=== PATIENT | female | born 1960 ===

== ENCOUNTER → 2020-08-17 | Outpatient (CLI) | payer OTHER ==
[~2020-08-17] MED LIST: AMOCLA875 PO; CEFD300 PO; CEFU250T47 PO; LEVSOD112 PO; OMEP20ER PO; ONDA4ODT MM; Prinivil10 MG PO
== END | disposition home or self-care (01) ==
LOC: LAB EV 16:04 → LAB SHORT 16:04
DX: N39.0 Urinary tract infection, site not specified (principal)
CPT/HCPCS: 87077; 87086; 87186

== ENCOUNTER → 2020-08-20 | Outpatient (CLI) | payer OTHER ==
[2020-08-20 13:59] LABS: BASOPHILS ABSOLUTE AUTO 0.11 K/mm3 (0.00-0.23); BASOPHILS PERCENT AUTO 1 % (0-2); EOSINOPHILS ABSOLUTE AUTO 0.11 K/mm3 (0.00-0.68); EOSINOPHILS PERCENT AUTO 1 % (0-6); Hematocrit 32.5 % (33.0-51.0); IMMATURE GRAN PERCENT AUTO 1 % (0-1); LYMPHOCYTES ABSOLUTE AUTO 2.76 K/mm3 (0.84-5.20); LYMPHOCYTES PERCENT AUTO 16 % (21-46); MONOCYTES ABSOLUTE AUTO 1.14 K/mm3 (0.16-1.47); MONOCYTES PERCENT AUTO 7 % (4-13); Mean Corpuscular HGB 35.4 pg (26.0-34.0); Mean Corpuscular HGB Conc 33.8 g/dL (31.5-36.5); Mean Corpuscular Volume 105 fL (80-100); Mean Platelet Volume 10.2 fL (9.1-12.4); NEUTROPHILS ABSOLUTE AUTO 12.89 K/mm3 (1.96-9.15); NEUTROPHILS PERCENT AUTO 75 % (41-73); NRBC ABSOLUTE 0.02 K/mm3 (0.00-0.02); NRBC Auto 0.1 /100 WBC (0.0-0.2); Platelet Count 471 K/mm3 (150-400); RDW Coefficient Variation 16.3 % (11.7-14.2); RDW Standard Deviation 60.6 fL (35.1-46.3); Red Blood Cell Count 3.11 M/mm3 (3.80-5.20); White Blood Cell Count 17.11 K/mm3 (4.00-11.30)
[2020-08-20 14:08] LABS: Albumin, Blood 2.3 g/dL (3.4-5.0); Albumin/Globulin Ratio 0.4 (0.8-1.8); Bilirubin, Total 2.4 mg/dL (0.1-1.0); Bun/Creatinine Ratio 23.8 (12.0-20.0); Calcium, Blood 9.7 mg/dL (8.5-10.1); Creatinine, Blood 1.68 mg/dL (0.40-1.00); Globulin, Blood 5.7 g/dL (2.2-4.0); Potassium, Blood 4.1 mmol/L (3.5-5.5)
== END | disposition home or self-care (01) ==
LOC: LAB SHORT 13:53 → LAB EV 13:53
PROVIDERS: Chiropractor
DX: K92.0 Hematemesis (principal)
CPT/HCPCS: 80053; 85025

== ENCOUNTER 2020-10-24 16:13 | Inpatient (IN) | payer OTHER ==
[~2020-10-24] VITALS: Ht 152.4 cm; Wt 71.6 kg
[2020-10-24 16:41] LABS: BASOPHILS ABSOLUTE AUTO 0.11 K/mm3 (0.00-0.23); BASOPHILS PERCENT AUTO 1 % (0-2); EOSINOPHILS ABSOLUTE AUTO 0.14 K/mm3 (0.00-0.68); EOSINOPHILS PERCENT AUTO 1 % (0-6); Hematocrit 29.8 % (33.0-51.0); Hemoglobin 9.4 g/dL (11.5-16.0); IMMATURE GRAN PERCENT AUTO 1 % (0-1); LYMPHOCYTES ABSOLUTE AUTO 2.31 K/mm3 (0.84-5.20); LYMPHOCYTES PERCENT AUTO 16 % (21-46); MONOCYTES ABSOLUTE AUTO 1.03 K/mm3 (0.16-1.47); MONOCYTES PERCENT AUTO 7 % (4-13); Mean Corpuscular HGB 33.1 pg (26.0-34.0); Mean Corpuscular HGB Conc 31.5 g/dL (31.5-36.5); Mean Corpuscular Volume 105 fL (80-100); Mean Platelet Volume 9.9 fL (9.1-12.4); NEUTROPHILS ABSOLUTE AUTO 10.62 K/mm3 (1.96-9.15); NEUTROPHILS PERCENT AUTO 74 % (41-73); Platelet Count 443 K/mm3 (150-400); RDW Coefficient Variation 15.4 % (11.7-14.2); RDW Standard Deviation 59.4 fL (35.1-46.3); Red Blood Cell Count 2.84 M/mm3 (3.80-5.20); White Blood Cell Count 14.31 K/mm3 (4.00-11.30)
[2020-10-24 16:48] LABS: Albumin, Blood 2.1 g/dL (3.4-5.0); Albumin/Globulin Ratio 0.4 (0.8-1.8); Bilirubin, Total 1.6 mg/dL (0.1-1.0); Bun/Creatinine Ratio 18.8 (12.0-20.0); Calcium, Blood 9.6 mg/dL (8.5-10.1); Creatinine, Blood 1.17 mg/dL (0.40-1.00); Globulin, Blood 5.6 g/dL (2.2-4.0); Total Protein, Blood 7.7 g/dL (6.4-8.2)
--- NOTE | 2020-10-25 02:28 | NUR ---
ADMIT PT TO ROOM FROM ER. AXO. WALKS INTO BED W/OUT ASSIST. PT IN SINUS TACH, OTHER VSS. 1 EPISODE OF EMESIS, EMESIS GREEN / WHITE. REGLAN ADMINISTERED. PROTONIX GTT INFUSING WITH NS. ADMISSION COMPLETED. PT HAS BEEN RESTING QUIETLY POST ADMISSION. CIWAS <8.
[2020-10-25 03:36] LABS: BASOPHILS ABSOLUTE AUTO 0.09 K/mm3 (0.00-0.23); BASOPHILS PERCENT AUTO 1 % (0-2); EOSINOPHILS ABSOLUTE AUTO 0.24 K/mm3 (0.00-0.68); EOSINOPHILS PERCENT AUTO 1 % (0-6); Hematocrit 26.2 % (33.0-51.0); Hemoglobin 8.3 g/dL (11.5-16.0); IMMATURE GRAN PERCENT AUTO 1 % (0-1); LYMPHOCYTES PERCENT AUTO 16 % (21-46); MONOCYTES PERCENT AUTO 9 % (4-13); Mean Corpuscular HGB 32.5 pg (26.0-34.0); Mean Corpuscular HGB Conc 31.7 g/dL (31.5-36.5); Mean Corpuscular Volume 103 fL (80-100); Mean Platelet Volume 9.9 fL (9.1-12.4); NEUTROPHILS ABSOLUTE AUTO 13.54 K/mm3 (1.96-9.15); NEUTROPHILS PERCENT AUTO 73 % (41-73); Platelet Count 356 K/mm3 (150-400); RDW Coefficient Variation 15.7 % (11.7-14.2); RDW Standard Deviation 58.6 fL (35.1-46.3); Red Blood Cell Count 2.55 M/mm3 (3.80-5.20); White Blood Cell Count 18.57 K/mm3 (4.00-11.30)
[2020-10-25 03:53] LABS: Albumin, Blood 1.9 g/dL (3.4-5.0); Albumin/Globulin Ratio 0.4 (0.8-1.8); Bilirubin, Total 1.5 mg/dL (0.1-1.0); Bun/Creatinine Ratio 23.2 (12.0-20.0); Calcium, Blood 8.4 mg/dL (8.5-10.1); Creatinine, Blood 1.42 mg/dL (0.40-1.00); Magnesium, Blood 1.5 mg/dL (1.6-2.4); Potassium, Blood 3.5 mmol/L (3.5-5.5); Total Protein, Blood 6.9 g/dL (6.4-8.2)
[2020-10-25 03:55] LABS: Source, Urine Clean Catch
[2020-10-25 03:57] LABS: Blood, Urine 1+ (Neg); Glucose Qualitative, Urine Neg (Neg); Ketones, Urine 1+ (Neg); Leukocyte Esterase, Urine 2+ (Neg); Nitrite, Urine Neg (Neg); Protein, Urine 1+ (Neg); Specific Gravity, Urine 1.015 (1.003-1.022); Urobilinogen, Urine 1+ (Normal)
[2020-10-25 04:04] LABS: Appearance, Urine Hazy (Clear); Bilirubin, Urine 1+ (Neg); Color, Urine Yellow (P-Yellow)
[2020-10-25 04:05] LABS: Amorphous Light (0-Heavy); Bacteria Mod /hpf; Mucus Light (0-Heavy); Red Blood Cells, Urine Rare /hpf (0-2); Squamous Epithelial Cells Few /hpf (Few); White Blood Cells, Urine 50-100 /hpf (0-5); Yeast/Fungi Urine Few /hpf
--- NOTE | 2020-10-25 04:51 | NUR ---
END OF SHIFT SUMMARY NO ACUTE CHANGES THIS SHIFT. VSS. REMAINS AXO. ON RA. IN SR, VSS. HAS HAD ONE EPISODE OF EMESIS SO FAR, NO BLOOD NOTED. HAD BM, NO BLOOD NOTED. HAS DENIED NAUSEA POST REGLAN CADMINISTRATION WITH ADMISSION. FLUIDS AND PROTONIX GTT INFUSING. PT TO BSC X2 WITH SBA. OTHERWISE, PT RESTING T/O SHIFT. USES CALL LIGHT APPROPRIATELY. WILL CONTINUE TO MONITOR UNTIL SHIFT CHANGE.
--- NOTE | 2020-10-25 06:51 | NUR ---
GI PT HAVING INCREASING DARK BLACK BM'S WITHIN THE LAST 2 HOURS. PT ALSO FOUND TO HAVE HAD AN EPISODE OF DARK RED EMESIS. PT MEDICATED PER EMAR.
--- NOTE | 2020-10-25 08:00 | NUR ---
CALLED DR. MCGILL AND DR. STRANGE TO UPDATE ON PATIENT STATUS. INFORMED THAT LIFE SKILLS TEACHER RN REPORTED PATIENT HAD SMALL, BLACK, HARD BM AROUND 0330 THIS AM, THEN 5-6 BLACK, SOFT/ PASTY BMS INCREASING IN SIZE EACH TIME FROM SMALL TO MEDIUM, THEN 200 TO 300 MLS OF DARK RED EMESIS. THIS SHIFT, PATIENT HAS HAD 150 MLS OF DARK RED LIQUID BM AND IS HYPOTENSIVE AT 80/45 WITH MAP OF 61. HR IN THE 90S. DR. MCGILL STATES WATER ONLY FOR NOW AND THEN NPO AT 1300 AND PLAN TO SCOPE AROUND 4PM. H AND H AT 0900.
--- NOTE | 2020-10-25 08:05 | NUR ---
PATIENT ALERT AND ORIENTED X 4, AFEBRILE. PATIENT WITHDRAWN WITH FLAT AFFECT. CIWA SCORE OF 3 FOR TREMORS AND NAUSA. PATIENT LIGHTHEADED AND DIZZY WHEN DANGLES FROM SIDE OF BED OR STANDS UP. PATIENT 1 PA. PATIENT STATES SHE DOES HAVE SOME STOMACH PAIN. PATIENT SATTING 90% AND GREATER ON RA. EXPIRATORY RHONCHI NOTED IN RLL. PATIENT IN SR WITH OCCASIONAL PACS NOTED. HR IN THE 90S. SBP 80S TO 90S. SCDS PLACED. ABDOMEN MILDLY DISTENDED, SOFT, TENDER, WITH HYPERACTIVE BS NOTED. PATIENT STATES SHE DOES FEEL SLIGHTLY NAUSEOUS. CT TECH REPORTED PATIENT HAD SEVERAL BLACK BMS INCREASING IN SIZE THROUGHOUT THE NIGHT AND BEGINNING HARD AND ENDING UP PASTY/SOFT BY END OF SHIFT. CT TECH ALSO REPORTED THAT PATIENT HAD 200 TO 300 MLS BLOODY EMESIS THIS AM. PATIENT HAD DARK RED, LIQUID BM THIS AM AFTER COMING ON SHIFT. BOTH DR. MCGILL AND DR. STRANGE AWARE AND ORDERS OBTAINED. PATIENT TO HAVE SCOPE THIS AFTERNOON. PATIENT TO HAVE WATER ONLY AND THEN NPO AT 1300. PATIENT DENIES UTI SYMPTOMS. SCRATCHES NOTED TO L FA. PROTONIX INFUSING AT 10 MLS/ HOUR, NS AT 75 MLS/ HOUR. BED LOW, CALL LIGHT IN REACH. WILL CONTINUE TO MONITOR PATIENT FREQUENTLY THROUGHOUT SHIFT.
[2020-10-25 10:00] LABS: Hematocrit 23.6 % (33.0-51.0); Hemoglobin 7.6 g/dL (11.5-16.0)
--- NOTE | 2020-10-25 10:10 | NUR ---
DR. MCGILL CALLED WITH H AND H RESULTS. ORDER FOR ANOTHER H AND H LEVEL RECEIVED.
--- NOTE | 2020-10-25 12:50 | NUR ---
PATIENT RESTING QUIETLY IN BED. HR 80S TO 90S. SBP 80S TO LOW 100S. BLOOD SUGAR OF 158; NO COVERAGE NEEDED. PATIENT CONTINUES TO HAVE LIQUID TO THICK, DARK RED/MAROON STOOLS. PATIENT HAS VOIDED VERY MINIMAL AMOUNT. NO OTHER ACUTE CHANGES TO NOTE ON AT THIS TIME.
--- NOTE | 2020-10-25 13:45 | NUR ---
DR. STRANGE CALLED AND INFORMED THAT PATIENT HAS ONLY VOIDED ONCE THIS SHIFT. INFORMED THAT BLADDER SCAN PERFORMED AND SHOWED 0 TO 30 MLS OF URINE IN BLADDER. INFORMED DOCTOR THAT PATIENT'S SBP HAS RANGED FROM 80S TO LOW 100S. ORDER OBTAINED FOR NS BOLUS AND TO REPEAT BLADDER SCAN AFTER BOLUS.
[2020-10-25 15:15] LABS: Hematocrit 22.1 % (33.0-51.0)
--- NOTE | 2020-10-25 15:20 | NUR ---
DR. MCGILL INFORMED OF HEMOGLOBIN OF 7.0. INFORMED THAT PATIENT IS RECEIVING NS BOLUS. NO ORDERS RECEIVED.
--- NOTE | 2020-10-25 15:50 | NUR ---
HR 80S TO 90S. SBP LOW 100S TO 120S. PATIENT CONTINUES TO HAVE MINIMAL URINE OUTPUT. NO OTHER ACUTE CHANGES TO NOTE ON AT THIS TIME.
--- NOTE | 2020-10-25 16:17 | NUR ---
FROM ICU TO SDS VSS ADMISSION TO UNIT STARTED. History, Chart, Medications and Allergies reviewed before start of procedure.Lungs clear T/O to Auscultation.
[2020-10-25 16:47] LABS: BASOPHILS ABSOLUTE AUTO 0.07 K/mm3 (0.00-0.23); BASOPHILS PERCENT AUTO 0 % (0-2); EOSINOPHILS ABSOLUTE AUTO 0.21 K/mm3 (0.00-0.68); EOSINOPHILS PERCENT AUTO 1 % (0-6); Hematocrit 22.2 % (33.0-51.0); IMMATURE GRAN PERCENT AUTO 1 % (0-1); LYMPHOCYTES ABSOLUTE AUTO 2.89 K/mm3 (0.84-5.20); LYMPHOCYTES PERCENT AUTO 17 % (21-46); MONOCYTES ABSOLUTE AUTO 1.56 K/mm3 (0.16-1.47); MONOCYTES PERCENT AUTO 9 % (4-13); Mean Corpuscular HGB 33.8 pg (26.0-34.0); Mean Corpuscular HGB Conc 31.5 g/dL (31.5-36.5); Mean Corpuscular Volume 107 fL (80-100); Mean Platelet Volume 10.5 fL (9.1-12.4); NEUTROPHILS ABSOLUTE AUTO 11.93 K/mm3 (1.96-9.15); NEUTROPHILS PERCENT AUTO 71 % (41-73); Platelet Count 298 K/mm3 (150-400); RDW Coefficient Variation 16.3 % (11.7-14.2); RDW Standard Deviation 64.1 fL (35.1-46.3); Red Blood Cell Count 2.07 M/mm3 (3.80-5.20); White Blood Cell Count 16.76 K/mm3 (4.00-11.30)
--- NOTE | 2020-10-25 18:31 | NUR ---
SHIFT SUMMARY PATIENT REMAINED ALERT AND ORIENTED X 4, AFEBRILE. CIWA SCORE REMAINED 3 FOR TREMORS AND INTERMITTENT NAUSEA. DIZZINESS IMPROVED DURING SHIFT WITH IMPROVEMENT IN BLOOD PRESSURE. PATIENT REMAINED 1 PA TO BSC. PATIENT REMAINED SATTING 90% AND GREATER ON RA. PATIENT REMAINED IN SR WITH OCCASIONAL PACS. HR 80S TO 90S. SBP 80S TO 130S. PATIENT HAD 9 BMS THIS SHIFT. BMS DARK RED TO MAROON IN COLOR. BMS LIQUID AND THICK TO THIN IN CONSISTENCY. PATIENT HAD NO EMESIS THIS SHIFT BUT DID HAVE INTERMITTENT NAUSEA AT BEGINNING OF SHIFT. PATIENT CONTINUES TO DENY UTI SYMPTOMS. PATIENT HAD MINIMAL URINE OUTPUT. FIRST BLADDER SCAN SHOWED LESS THAN 30 CC URINE IN BLADDER. 1 L NS BOLUS GIVEN PER DR. STRANGE. BLADDER SCAN PERFORMED AFTER PATIENT BACK FROM SCOPE AND SHOWED 43 CC URINE IN BLADDER. DR. STRANGE NOTIFIED AGAIN AND ORDER RECEIVED FOR NS AT 100 MLS/ HOUR. NO CHANGE TO SKIN. PATIENT RECEIVED ROCEPHIN AND BANANA BAG THIS SHIFT. NO INTERVENTION PERFORMED DURING EGD. PATIENT NOW ON FULL LIQUID DIET AND PROTONIX BID. BLOOD SUGARS 92 TO 180; NO COVERAGE INDICATED THIS SHIFT. PATIENT LYING IN BED WATCHING TV AT THIS TIME. NO SIGNS OF PAIN OR DISCOMFORT NOTED. BED LOW, CALL LIGHT IN REACH. REPORT WILL BE GIVEN TO ASSUMING FOUNDRY MANAGER NURSE SHORTLY.
--- NOTE | 2020-10-25 19:26 | NUR ---
10/25/201925 Timmy Veras PATIENT DETERMINED TO BE ASA APPROPRIATE FOR PROPOFOL SEDATION PRIOR TO START OF PROCEDURE BY . 3-LEAD EKG REVIEWED WITH PHYSICIAN PRIOR TO START OF PROCEDURE.History, Chart, Medications and Allergies reviewed before start of procedure.MONITOR INTACT WITH CONTINUOUS PULSE OXIMETRY AND INTERMITTENT BP.O2 VIA N/C INTACT THROUGHOUT SEDATION/PROCEDURE.
[2020-10-25 21:09] LABS: BASOPHILS ABSOLUTE AUTO 0.08 K/mm3 (0.00-0.23); BASOPHILS PERCENT AUTO 1 % (0-2); EOSINOPHILS ABSOLUTE AUTO 0.46 K/mm3 (0.00-0.68); EOSINOPHILS PERCENT AUTO 3 % (0-6); Hematocrit 21.3 % (33.0-51.0); Hemoglobin 6.7 g/dL (11.5-16.0); IMMATURE GRAN ABSOLUTE AUTO 0.08 K/mm3 (0.00-0.10); IMMATURE GRAN PERCENT AUTO 1 % (0-1); LYMPHOCYTES ABSOLUTE AUTO 3.59 K/mm3 (0.84-5.20); LYMPHOCYTES PERCENT AUTO 21 % (21-46); MONOCYTES PERCENT AUTO 8 % (4-13); Mean Corpuscular HGB 33.3 pg (26.0-34.0); Mean Corpuscular HGB Conc 31.5 g/dL (31.5-36.5); Mean Corpuscular Volume 106 fL (80-100); Mean Platelet Volume 10.4 fL (9.1-12.4); NEUTROPHILS PERCENT AUTO 68 % (41-73); Platelet Count 306 K/mm3 (150-400); RDW Coefficient Variation 16.2 % (11.7-14.2); RDW Standard Deviation 62.2 fL (35.1-46.3); Red Blood Cell Count 2.01 M/mm3 (3.80-5.20); White Blood Cell Count 17.01 K/mm3 (4.00-11.30)
--- NOTE | 2020-10-26 | NUR ---
DR MCGILL CALLED AT 2100 W/ H+H RESULTS. 1 UNIT PRBC STARTED AT 2356. LUNGS CLEAR. MD AWARE NS HAD BEEN AT 100ML AN HOUR AND DR MCGILL WANTS NS ONLY TKO. TO KEEP PT ON THE DRY SIDE. AWARE VS / BP WNL. PT TOOK A FEW POP SICLES AND ONLY A FEW SIPS OF CLEAR SODA. DENIES NAUSEA/ OR GI DISTRESS.
--- NOTE | 2020-10-26 00:11 | NUR ---
LUNGS CLEAR AT 15 MIN POST BLOOD TX START, NO ADVERSE ISSUES
--- NOTE | 2020-10-26 02:20 | NUR ---
LUNGS REMAIN CLEAR . RBC TX IN PROGRESS
[2020-10-26 04:48] LABS: BASOPHILS ABSOLUTE AUTO 0.12 K/mm3 (0.00-0.23); BASOPHILS PERCENT AUTO 1 % (0-2); EOSINOPHILS ABSOLUTE AUTO 0.65 K/mm3 (0.00-0.68); EOSINOPHILS PERCENT AUTO 4 % (0-6); Hematocrit 25.3 % (33.0-51.0); Hemoglobin 8.4 g/dL (11.5-16.0); IMMATURE GRAN ABSOLUTE AUTO 0.08 K/mm3 (0.00-0.10); IMMATURE GRAN PERCENT AUTO 1 % (0-1); LYMPHOCYTES PERCENT AUTO 17 % (21-46); MONOCYTES ABSOLUTE AUTO 1.19 K/mm3 (0.16-1.47); MONOCYTES PERCENT AUTO 7 % (4-13); Mean Corpuscular HGB 33.1 pg (26.0-34.0); Mean Corpuscular HGB Conc 33.2 g/dL (31.5-36.5); Mean Platelet Volume 10.3 fL (9.1-12.4); NEUTROPHILS ABSOLUTE AUTO 11.29 K/mm3 (1.96-9.15); NEUTROPHILS PERCENT AUTO 70 % (41-73); Platelet Count 292 K/mm3 (150-400); RDW Coefficient Variation 17.1 % (11.7-14.2); RDW Standard Deviation 60.2 fL (35.1-46.3); Red Blood Cell Count 2.54 M/mm3 (3.80-5.20); White Blood Cell Count 16.13 K/mm3 (4.00-11.30)
[2020-10-26 04:49] LABS: Mean Corpuscular Volume 100 fL (80-100)
[2020-10-26 05:08] LABS: Albumin, Blood 1.9 g/dL (3.4-5.0); Albumin/Globulin Ratio 0.4 (0.8-1.8); Bilirubin, Total 2.2 mg/dL (0.1-1.0); Calcium, Blood 7.8 mg/dL (8.5-10.1); Creatinine, Blood 1.5 mg/dL (0.40-1.00); Globulin, Blood 4.7 g/dL (2.2-4.0); Magnesium, Blood 1.9 mg/dL (1.6-2.4); Potassium, Blood 3.9 mmol/L (3.5-5.5); Total Protein, Blood 6.6 g/dL (6.4-8.2)
--- NOTE | 2020-10-26 06:14 | NUR ---
SHIFT SUMMARY. TOLERATES SIPS OF SODA AND POP SICLE. FULL LIQ DIET STARTS THIS AM AT BREAKFAST/ NOT OFFERED LAST NOC. NO PAIN OR GI DISTURBANCE.NO NAUSEA. ONLY ONE SCANTY BROWN LIQ STOOL AT 1999. NO EVIDENCE OF DT'S . CIWA 0. LUNGS REMAIN CLEAR.SR ALL SHIFT.
--- NOTE | 2020-10-26 08:05 | NUR ---
INITIAL ASSESSMENT PATIENT ALERT AND ORIENTED X 4, AFEBRILE. PATIENT CALM, COOPERATIVE AND PLEASANT. CIWA SCORE OF 0. PATIENT WEAK, SBA TO BSC. NO COMPLAINTS OF PAIN. PATIENT SATTING 90% AND GREATER ON RA. LUNGS CLEAR THROUGHOUT. PATIENT IN SR, HR 60S TO 90S. SBP 140S TO 150S. PATIENT HAD SMALL, LIQUID, BROWN BM THIS AM. PATIENT VOIDING RAY COLORED URINE. PATIENT DENIES UTI SYMPTOMS. NS TKO. BED LOW, CALL LIGHT IN REACH. WILL CONTINUE TO MONITOR PATIENT FREQUENTLY THROUGHOUT SHIFT.
--- NOTE | 2020-10-26 12:00 | NUR ---
PATIENT AFEBRILE. NO COMPLAINTS OF PAIN OR DISCOMFORT. HR IN THE 60S. SBP 120S TO 130S. BLOOD SUGAR OF 115; NO COVERAGE INDICATED. NO ACTIVE BLEEDING NOTED. NO OTHER ACUTE CHANGES TO NOTE ON AT THIS TIME.
[2020-10-26] MEDS ORDERED: ACET325 PO (13:17)
[2020-10-26] MEDS ORDERED: KEFLEX500 MG PO (13:19)
[2020-10-26] MEDS ORDERED: AZO CRANBERRY PO (13:22)
[2020-10-26] MEDS ORDERED: PANT40 PO (13:23)
[2020-10-26] MEDS ORDERED: ONDA4ODT MM (13:23)
[2020-10-26] MEDS ORDERED: Inderal 20 mg T20 MG PO (13:25)
--- NOTE | 2020-10-26 14:20 | NUR ---
SHIFT SUMMARY PATIENT REMAINED ALERT AND ORIENTED X 4, AFEBRILE. PATIENT HAD NO COMPLAINTS OF PAIN THIS SHIFT. PATIENT SLIGHTLY WEAK BUT IS AMBULATING WELL WITH SBA FOR CORDS AND LINES. CIWA SCORE REMAINED ZERO. PATIENT REMAINED SATTING 90% AND GREATER ON RA. PATIENT REMAINS IN SR, HR 60S TO 90S. SBP 120S TO 150S. PATIENT HAD 2 SMALL, LIQUID, BROWN BMS. PATIENT HAD GOOD URINE OUTPUT. PATIENT CONTINUES TO DENY UTI SYMPTOMS. NO CHANGE IN SKIN. PATIENT RECEIVED 25MM SODIUM PHOSPHORUS FOR PHOS OF 2 THIS AM. PATIENT RECEIVED BANANA BAG. BLOOD SUGARS RANGED FROM 115 TO 162; NO COVERAGE INDICATED. DR. MCGILL AND DR. STRANGE BOTH IN TO SEE PATIENT. DISCHARGE ORDERS PLACED. PATIENT GIVEN DISCHARGE INFORMATION AND STATED THAT ALL INSTRUCTIONS AND EDUCATION WERE UNDERSTOOD. PATIENT TAKEN TO PATIENT ENTRANCE WHERE NEIGHBOR MEETING HER TO TAKE HER HOME. PATIENT TOOK ALL BELONGINGS WITH HER. DISCHARGE COMPLETE.
== END 2020-10-26 14:50 | disposition home or self-care (01) | DRG 369 ==
LOC: ER 16:13 → ERHOLD 19:21 → ICUE 19:21
PROVIDERS: Emergency Medicine; Internal Medicine Gastroenterology; ADMIT Family Medicine
PROC: 0DJ08ZZ Inspection of Upper Intestinal Tract, Via Natural or Artificial Opening Endoscopic (ICD-10-PCS; principal; 2020-10-25 17:00)
PROC: 30233N1 Transfusion of Nonautologous Red Blood Cells into Peripheral Vein, Percutaneous Approach (ICD-10-PCS; 2020-10-26)
DX: K22.6 Gastro-esophageal laceration-hemorrhage syndrome (principal); F10.188 Alcohol abuse with other alcohol-induced disorder; I10 Essential (primary) hypertension; E03.9 Hypothyroidism, unspecified; Z87.891 Personal history of nicotine dependence; R73.9 Hyperglycemia, unspecified; D72.829 Elevated white blood cell count, unspecified; L80 Vitiligo; K70.30 Alcoholic cirrhosis of liver without ascites
CPT/HCPCS: 36415; 36430; 71045; 80053; 81001; 82272; 82947; 83036; 83690; 83735; 84100; 85014; 85018; 85025; 86850; 86900; 86901; 86923; 87086; 96365; 96375; 99285-25; A9270-GY; C9113; J0696; J2405; J2704; J2765; J3411; J3475; J7030; J7042; J7060; P9016

== ENCOUNTER 2020-12-17 02:33 | Inpatient (IN) | payer OTHER ==
[~2020-12-17] VITALS: Ht 152.4 cm; Wt 67.2 kg
[~2020-12-17 02:33] MED LIST changes: +ACET325 PO; +AZO CRANBERRY PO; +Inderal 20 mg T20 MG PO; +KEFLEX500 MG PO; +PANT40 PO
[2020-12-17 02:45] LABS: Calcium, Ionized (POC) 1.08 mmol/L (1.10-1.46); Chloride (POC) 104 mmol/L (98-108); Creatinine (POC) 1.7 mg/dL (0.6-1.0); Glucose (ISTAT POC) 137 mg/dL (70-99); Hemoglobin (POC) 8.2 g/dL (12.0-16.0); Potassium (POC) 4.5 mmol/L (3.5-5.5); Sodium (POC) 139 mmol/L (135-148); Total CO2 (POC) 28 mmol/L (21-32)
[2020-12-17 02:49] LABS: BASOPHILS ABSOLUTE AUTO 0.11 K/mm3 (0.00-0.23); BASOPHILS PERCENT AUTO 1 % (0-2); EOSINOPHILS ABSOLUTE AUTO 0.37 K/mm3 (0.00-0.68); EOSINOPHILS PERCENT AUTO 3 % (0-6); Hematocrit 25.8 % (33.0-51.0); Hemoglobin 7.8 g/dL (11.5-16.0); IMMATURE GRAN ABSOLUTE AUTO 0.06 K/mm3 (0.00-0.10); IMMATURE GRAN PERCENT AUTO 1 % (0-1); LYMPHOCYTES ABSOLUTE AUTO 1.74 K/mm3 (0.84-5.20); LYMPHOCYTES PERCENT AUTO 15 % (21-46); MONOCYTES ABSOLUTE AUTO 0.87 K/mm3 (0.16-1.47); MONOCYTES PERCENT AUTO 8 % (4-13); Mean Corpuscular HGB 28.2 pg (26.0-34.0); Mean Corpuscular HGB Conc 30.2 g/dL (31.5-36.5); Mean Corpuscular Volume 93 fL (80-100); Mean Platelet Volume 10.6 fL (9.1-12.4); NEUTROPHILS ABSOLUTE AUTO 8.36 K/mm3 (1.96-9.15); NEUTROPHILS PERCENT AUTO 73 % (41-73); Platelet Count 367 K/mm3 (150-400); RDW Coefficient Variation 17.4 % (11.7-14.2); RDW Standard Deviation 58.7 fL (35.1-46.3); Red Blood Cell Count 2.77 M/mm3 (3.80-5.20); White Blood Cell Count 11.51 K/mm3 (4.00-11.30)
[2020-12-17 03:05] LABS: Alanine Aminotransfer (ALT/SGP 56 U/L (12-78); Albumin, Blood 2.1 g/dL (3.4-5.0); Albumin/Globulin Ratio 0.4 (0.8-1.8); Alk Phos 209 U/L (50-136); Anion Gap 6 mmol/L (6-16); Aspartate Aminotrans (AST/SGOT 156 U/L (12-37); Bilirubin, Total 1.4 mg/dL (0.1-1.0); Blood Urea Nitrogen 30 mg/dL (8-24); Bun/Creatinine Ratio 20.7 (12.0-20.0); CO2, Blood 27 mmol/L (21-32); Calcium, Blood 8.1 mg/dL (8.5-10.1); Chloride, Blood 109 mmol/L (98-108); Creatinine, Blood 1.45 mg/dL (0.40-1.00); Ethanol (Alcohol), Blood, Med <3 mg/dL; Globulin, Blood 4.8 g/dL (2.2-4.0); Glomerular Filtration Rate 39 (60-); Glucose, Blood 141 mg/dL (70-99); International Normalized Ratio 1.23; Potassium, Blood 4.6 mmol/L (3.5-5.5); Sodium, Blood 142 mmol/L (136-145); Total Protein, Blood 6.9 g/dL (6.4-8.2)
--- NOTE | 2020-12-17 06:27 | NUR ---
ASSUMED PT: PT ARRIVED FROM ER VIA GURNEY WITH RN AT BEDSIDE. PT DENIES ANY PAIN. LS CLEAR T/O WITH BIOX 100% ON RA. HEART SOUNDS S1 AND S2 AUSCULTATED WITH MONITOR SHOWING NSR WITH HR75. SKIN PINK, WARM AND DRY. PPP BILAT WITH NO EDEMA. 20G IV LAC WITH SANDOSTATIN AT 25MCG/HR. 16G IV R AC WITH PROTONIX AT 10ML/HR. ABD R/S WITH HYPO BT'S X4. UP WITH ASSIST TO TOILET WHEN SHE GOT HERE. PT STATES HER LAST DRINK WAS ABOUT 1 WEEK AGO. DRINKS EITHER VODKA OR TEQUILA.
--- NOTE | 2020-12-17 07:30 | NUR ---
PT IS ALERT AND ORIENTED X 4. CURRENTLY, PT DENIES PAIN OR NAUSEA. NO ACTIVE GI BLEEDING AT THIS TIME. NPO. DR. MCGILL HAS BEEN CONSULTED. PROTONIX DRIP @ 8 MG AND OCTREOTIDE @ 25 MCG/HR.
--- NOTE | 2020-12-17 08:00 | NUR ---
DR. MCGILL HERE TO SEE PT. EGD LATER THIS AFTERNOON. PT MAY HAVE CLEAR LIQUIDS UNTIL 1400 TODAY. NPO @ 1400-PT VERBALIZES UNDERSTANDING AND COOPERATION WITH THIS PLAN OF CARE.
[2020-12-17 11:04] LABS: Hematocrit 23.5 % (33.0-51.0)
--- NOTE | 2020-12-17 11:30 | NUR ---
DR. TOLLIVER NOTIFIED THAT HGB 7-ORDER GIVEN TO TRANSFUSE 1 UNIT PRBC'S. PT CONTINUES TO DENY NAUSEA AND GI DISTRESS. NO ACTIVE GI BLEEDING AT THIS TIME. PT IS TOLERATING CLEAR LIQUIDS WELL.
--- NOTE | 2020-12-17 12:20 | NUR ---
PT DENIES NAUSEA. NO NOTED ACUTE GI BLEEDING. 1 UNIT PRBC'S INFUSING-SEE TAR.
--- NOTE | 2020-12-17 13:00 | NUR ---
SPOKE WITH [facility] KWON FROM DAY SURGERY. PT TO BE NPO NOW. COVID-RAPID TEST DONE. ECG TENTATIVELY SCHEDULED FOR 1514 TODAY.
[2020-12-17 14:16] LABS: Influenza A, PCR Negative (NEGATIVE); Influenza B, PCR Negative (NEGATIVE); Resp Syncytial Virus, PCR Negative (NEGATIVE); SARS-Cov-2 (COVID-19) PCR, MMC Negative (NEGATIVE)
--- NOTE | 2020-12-17 15:33 | NUR ---
12/17/20 1533 Allyson Sims History, Chart, Medications and Allergies reviewed before start of procedure.PATIENT DETERMINED TO BE ASA APPROPRIATE FOR PROPOFOL SEDATION PRIOR TO START OF PROCEDURE BY . Patient confirms NPO status and agrees with scheduled surgery.MONITOR INTACT WITH CONTINUOUS PULSE OXIMETRY AND INTERMITTENT BP.O2 VIA POM INTACT THROUGHOUT SEDATION/PROCEDURE.3-LEAD EKG REVIEWED WITH PHYSICIAN PRIOR TO START OF PROCEDURE.
--- NOTE | 2020-12-17 17:00 | NUR ---
EGD COMPLETED. PT IS AWAKE AND ALERT. PT DENIES PAIN OR NAUSEA. 2 VARICES NOTED DURING ECG WITH 2 BANDS PLACED. FULL LIQUID DIET INITIATED. PT TOLERATING DIET WELL. VS WDL. LAB PHONED TO COME DRAW POST TRANSFUSION H&H.
[2020-12-17 17:29] LABS: Hematocrit 27.5 % (33.0-51.0); Hemoglobin 8.4 g/dL (11.5-16.0)
--- NOTE | 2020-12-17 19:10 | NUR ---
ASSUMPTION OF CARE RECEIVED REPORT FROM JANNY BETHEA. ASSUMED CARE OF PATIENT. PATIENT A/O, IN BED. FINISHING DINNER TRAY. ONE RN ASSIST TO TOILET WITH STEADY GAIT. PATIENT DENIES DISCOMFORTS. OCTREOTIDE INFUSING ORDERED. VITAL STABLE. CALL LIGHT IN REACH. WILL REVIEW ORDERS AND TREAT PRESCRIBED.
[2020-12-17 23:10] LABS: Hematocrit 25.8 % (33.0-51.0); Hemoglobin 8.1 g/dL (11.5-16.0)
--- NOTE | 2020-12-18 | NUR ---
REASSESSMENT NO ACUTE CHANGES FROM PREVIOUS ASSESSMENT. OCTREOTIDE CONTINUES PER DR. MATSON. VITALS STABLE. PATIENT DENIES DISCOMFORTS. CALL LIGHT IN REACH.
--- NOTE | 2020-12-18 04:00 | NUR ---
REASSESSMENT NO ACUTE CHANGES FROM PREVIOUS ASSESSMENT. PATIENT CONTINUES TO DENY PAIN OR DISCOMFORTS. OCTREOTIDE INFUSING ORDERED. VITALS STABLE. CALL LIGHT IN REACH.
[2020-12-18 05:05] LABS: Hematocrit 27.4 % (33.0-51.0); Hemoglobin 8.6 g/dL (11.5-16.0)
--- NOTE | 2020-12-18 06:07 | NUR ---
SHIFT SUMMARY NO ACUTE EVENTS THROUGH SHIFT. LABS AND VITALS REMAINED STABLE. PATIENT DENIED DISCOMFORTS DURING NIGHT. INDEPENDENT WITH TURNS, STAND BY ASSIST TO TOILET IN ROOM WITH STEADY GAIT. OCTREOTIDE INFUSING ORDERED. CALL LIGHT IN REACH. WILL GIVE REPORT TO ONCOMING RN.
--- NOTE | 2020-12-18 08:31 | NUR ---
ASSUMED CARE OF PT, REPORT RCV'D FROM UVALDO Lundberg RN. PT ALERT AND ORIENTED, COOPERATIVE WITH CARE. PT INDEPENDENT WITH ASSISTANCE ONLY NEEDED FOR CORDS. PT DENIES ABDOMINAL PAIN AT REST OR WITH PALPATION. SANDOSTATIN INFUSING @ 25 MLS/HR. VSS. SEE FULL SHIFT ASSESSMENT.
--- NOTE | 2020-12-18 09:39 | NUR ---
PT CHANGED TO MEDICAL STATUS NO TELE PER DR. TOLLIVER. PT UPDATED.
--- NOTE | 2020-12-18 17:03 | NUR ---
SHIFT SUMMARY NO ACUTE CHANGES DURING THIS SHIFT. PT REMAINS INDEPENDENT IN ROOM. AMBULATING WITHOUT DIFFICULTY. PT EATING WELL. NO COMPLAINT OF NAUSEA, OR ABDOMINAL PAIN. PT HAD GOOD URINARY OUTPUT. NO EPISODES OF BLOODY EMESIS OR BM'S. VSS T/O SHIFT. PT REMAINS MED/NO TELE STATUS. WILL REPORT TO ONCOMING NURSE.
--- NOTE | 2020-12-18 19:24 | NUR ---
ASSESSMENT BED SIDE REPORT RECIEVED FROM GRACIE. PT AWAKE A&O. DENEIS PAIN OR DISCOMFORT. UP IN ROOM AD HAY. LUNGS CLEAR ON ROOMAIR. RESP EVEN AND NONLABORED. HEART RATE REGULAR. BP STABLE. BT+ ABD SOFT AND NONTENDER. DENIES N/V.
--- NOTE | 2020-12-18 20:52 | NUR ---
TRANSFER PT TO TRANSFER TO 327. REPORT CALLED TO SAMMI HE RN.
--- NOTE | 2020-12-19 04:04 | NUR ---
SHIFT SUMMARY TRANSFERED FROM ICU THIS SHIFT. ADMITTED FOR HEMATEMESIS-RESOLVED. FULL CODE. ADVANCE DIET TOLERATED. HOPEFUL FOR DC TODAY. HX: ETOH. DR MCGILL IS CONSULT. OCTEOTRIDE INFUSING ORDERED. PT IS TOLERATING ADVANCING DIET WELL. NO NEW CONCERNS THIS SHIFT
[2020-12-19 05:10] LABS: BASOPHILS PERCENT AUTO 1 % (0-2); EOSINOPHILS ABSOLUTE AUTO 0.66 K/mm3 (0.00-0.68); EOSINOPHILS PERCENT AUTO 7 % (0-6); Hemoglobin 8.4 g/dL (11.5-16.0); IMMATURE GRAN ABSOLUTE AUTO 0.03 K/mm3 (0.00-0.10); IMMATURE GRAN PERCENT AUTO 0 % (0-1); LYMPHOCYTES ABSOLUTE AUTO 2.23 K/mm3 (0.84-5.20); LYMPHOCYTES PERCENT AUTO 24 % (21-46); MONOCYTES PERCENT AUTO 10 % (4-13); Mean Corpuscular HGB 28.1 pg (26.0-34.0); Mean Corpuscular HGB Conc 31.1 g/dL (31.5-36.5); Mean Corpuscular Volume 90 fL (80-100); Mean Platelet Volume 10.2 fL (9.1-12.4); NEUTROPHILS ABSOLUTE AUTO 5.55 K/mm3 (1.96-9.15); NEUTROPHILS PERCENT AUTO 59 % (41-73); Platelet Count 288 K/mm3 (150-400); RDW Coefficient Variation 17.4 % (11.7-14.2); RDW Standard Deviation 57.2 fL (35.1-46.3); Red Blood Cell Count 2.99 M/mm3 (3.80-5.20); White Blood Cell Count 9.47 K/mm3 (4.00-11.30)
[2020-12-19 05:34] LABS: Alanine Aminotransfer (ALT/SGP 87 U/L (12-78); Albumin, Blood 2.3 g/dL (3.4-5.0); Albumin/Globulin Ratio 0.5 (0.8-1.8); Alk Phos 202 U/L (50-136); Anion Gap 6 mmol/L (6-16); Aspartate Aminotrans (AST/SGOT 285 U/L (12-37); Bilirubin, Total 1.3 mg/dL (0.1-1.0); Blood Urea Nitrogen 10 mg/dL (8-24); Bun/Creatinine Ratio 11.2 (12.0-20.0); CO2, Blood 27 mmol/L (21-32); Chloride, Blood 108 mmol/L (98-108); Creatinine, Blood 0.89 mg/dL (0.40-1.00); Globulin, Blood 4.7 g/dL (2.2-4.0); Glomerular Filtration Rate >60 (60-); Glucose, Blood 145 mg/dL (70-99); Potassium, Blood 3.9 mmol/L (3.5-5.5); Sodium, Blood 141 mmol/L (136-145)
[2020-12-19] MEDS ORDERED: Acetaminophen325 M1 PO (11:02)
[2020-12-19] MEDS ORDERED: PANT20 PO (11:03)
--- NOTE | 2020-12-19 16:00 | NUR ---
DISCHARGE INSTRUCTIONS COMPLETED AND DISCUSSED WITH PT EXPRESSING UNDERSTANDING. SCRIPTS FAXED TO [facility]. TO [facility] VIA W/C.
[2021-03-25] MEDS ORDERED: ONDA4ODT MM (01:25)
== END 2020-12-19 16:04 | disposition home or self-care (01) | DRG 432 ==
LOC: ER 02:33 → ICUW 02:34 → MEDS 12-18 21:00
PROVIDERS: Internal Medicine; Internal Medicine Gastroenterology; Nurse Practitioner Acute Care; Student in an Organized Health Care Education/Training Program; ADMIT Family Medicine
PROC: 06L38CZ Occlusion of Esophageal Vein with Extraluminal Device, Via Natural or Artificial Opening Endoscopic (ICD-10-PCS; principal; 2020-12-17 16:00)
DX: K70.30 Alcoholic cirrhosis of liver without ascites (principal); I85.11 Secondary esophageal varices with bleeding; D62 Acute posthemorrhagic anemia; K76.6 Portal hypertension; Z87.891 Personal history of nicotine dependence; I95.9 Hypotension, unspecified; E03.9 Hypothyroidism, unspecified; F10.10 Alcohol abuse, uncomplicated; N18.30 Chronic kidney disease, stage 3 unspecified; I12.9 Hypertensive chronic kidney disease with stage 1 through stage 4 chronic kidney disease, or unspecified chronic kidney disease; Z20.822 Contact with and (suspected) exposure to COVID-19; Y90.0 Blood alcohol level of less than 20 mg/100 ml
CPT/HCPCS: 0241U; 36415; 36430; 71045; 80047; 80053; 83690; 85014; 85018; 85025; 85610; 86850; 86900; 86901; 86923; 93005; 93010; 96365; 96366; 96368; 96376; 99285-25; A9270; C9113; G0378; G0480; J0171; J1430; J2250; J2354; J2704; J7030; J7050; J7120; P9016

== ENCOUNTER 2021-03-06 20:54 | Inpatient (IN) | payer OTHER ==
[~2021-03-06] VITALS: Ht 152.4 cm; Wt 62.0 kg
[~2021-03-06 20:54] MED LIST changes: +Acetaminophen325 M1 PO; +PANT20 PO
[2021-03-06 22:38] LABS: BASOPHILS ABSOLUTE AUTO 0.06 K/mm3 (0.00-0.23); BASOPHILS PERCENT AUTO 1 % (0-2); EOSINOPHILS ABSOLUTE AUTO 0.25 K/mm3 (0.00-0.68); EOSINOPHILS PERCENT AUTO 3 % (0-6); Hematocrit 28.2 % (33.0-51.0); Hemoglobin 9.3 g/dL (11.5-16.0); IMMATURE GRAN ABSOLUTE AUTO 0.01 K/mm3 (0.00-0.10); IMMATURE GRAN PERCENT AUTO 0 % (0-1); LYMPHOCYTES ABSOLUTE AUTO 2.14 K/mm3 (0.84-5.20); LYMPHOCYTES PERCENT AUTO 29 % (21-46); MONOCYTES ABSOLUTE AUTO 1.02 K/mm3 (0.16-1.47); MONOCYTES PERCENT AUTO 14 % (4-13); Mean Corpuscular HGB 27.1 pg (26.0-34.0); Mean Corpuscular Volume 82 fL (80-100); Mean Platelet Volume 9.4 fL (9.1-12.4); NEUTROPHILS ABSOLUTE AUTO 3.87 K/mm3 (1.96-9.15); NEUTROPHILS PERCENT AUTO 53 % (41-73); Platelet Count 329 K/mm3 (150-400); RDW Coefficient Variation 17.2 % (11.7-14.2); RDW Standard Deviation 51.7 fL (35.1-46.3); Red Blood Cell Count 3.43 M/mm3 (3.80-5.20); White Blood Cell Count 7.35 K/mm3 (4.00-11.30)
[2021-03-06 22:56] LABS: Alanine Aminotransfer (ALT/SGP 40 U/L (12-78); Albumin, Blood 2.6 g/dL (3.4-5.0); Albumin/Globulin Ratio 0.6 (0.8-1.8); Alk Phos 123 U/L (50-136); Anion Gap 9 mmol/L (6-16); Aspartate Aminotrans (AST/SGOT 62 U/L (12-37); Bilirubin, Total 2.3 mg/dL (0.1-1.0); Blood Urea Nitrogen 45 mg/dL (8-24); Bun/Creatinine Ratio 18.8 (12.0-20.0); CO2, Blood 26 mmol/L (21-32); Calcium, Blood 9.5 mg/dL (8.5-10.1); Chloride, Blood 105 mmol/L (98-108); Creatinine, Blood 2.39 mg/dL (0.40-1.00); Ethanol (Alcohol), Blood, Med <3 mg/dL; Globulin, Blood 4.3 g/dL (2.2-4.0); Glomerular Filtration Rate 22 (60-); Glucose, Blood 86 mg/dL (70-99); Potassium, Blood 3.4 mmol/L (3.5-5.5); Sodium, Blood 140 mmol/L (136-145); Total Protein, Blood 6.9 g/dL (6.4-8.2)
--- NOTE | 2021-03-07 05:41 | NUR ---
SHIFT SUMMARY PT NEW ED ADMIT THIS EVENING. A/O X 2-3. SLOW TO RESPOND AND DOESN'T ALWAYS RESPOND APPROPRIATELY. CIWA SCORES 2. BANANA BAG INFUSED. URINE VERY DARK PER CENTRIFUGAL SPINNER. PT AMBULATED TO THE RESTROOM WITH A SBA. SLOW MOVING. ATE AND DRANK WELL THIS EVENING. SKIN DISCOLORED IN BLE'S. JAUNDICED. VITAL SIGNS STABLE. RA. TELE READING SR IN THE 70'S. NO ACUTE EVENTS THIS EVENING.
[2021-03-07 05:57] LABS: Bun/Creatinine Ratio 18.8 (12.0-20.0); Calcium, Blood 8.8 mg/dL (8.5-10.1); Creatinine, Blood 2.18 mg/dL (0.40-1.00); Potassium, Blood 3.1 mmol/L (3.5-5.5)
[2021-03-07 16:15] LABS: Source, Urine Clean Catch
[2021-03-07 16:17] LABS: Appearance, Urine Hazy (Clear); Bilirubin, Urine Neg (Neg); Blood, Urine 1+ (Neg); Color, Urine Yellow (P-Yellow); Glucose Qualitative, Urine Neg (Neg); Ketones, Urine Neg (Neg); Leukocyte Esterase, Urine 3+ (Neg); Nitrite, Urine Neg (Neg); Protein, Urine Neg (Neg); Specific Gravity, Urine 1.015 (1.003-1.022); Urobilinogen, Urine 3+ (Normal)
--- NOTE | 2021-03-07 16:17 | NUR ---
PT HAS NOT REQUESTED TO USE THE RESTROOM T/O DAY. TOLD PT WE NEED TO GET UP AND TRY AND SHE SAID OKAY. PT VOIDED APPROX 300 ML. URINE SAMPLE WAS COLLECTED AND SENT OFF TO LAB. THIS WAS THE PT FIRST AND ONLY VOID OF THE DAY SO FAR. COMPLETED A BLADDER SCAN AND SHOWED LESS THAN 100 ML IN THE BLADDER POST VOID.
[2021-03-07 16:43] LABS: White Blood Cells, Urine 25-50 /hpf (0-5)
[2021-03-07 16:44] LABS: Bacteria Many /hpf; Squamous Epithelial Cells Mod /hpf (Few)
[2021-03-07 16:46] LABS: U Amphetamine Screen Not Detected; U Barbituate Screen Not Detected; U Benzodiazapine Screen Not Detected; U Buprenorphine Screen Not Detected; U Cannabinoids Screen DETECTED; U Cocaine Screen Not Detected; U Methadone Screen Not Detected; U Methamphetamine Screen Not Detected; U Opiates Screen Not Detected; U Oxycodone Screen Not Detected; U Phencyclidine Screen Not Detected; U Propoxyphene Screen Not Detected
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
--- NOTE | 2021-03-08 04:10 | NUR ---
YARN WORKER SUMMARY A/O TO SELF AND PLACE. DROWSY AT TIMES. ABLE TO RESPOND TO QUESTIONS AND FOLLOW COMMANDS. DENIES PAIN OR SOB. PT WAS CONFUSED AND PULLED OUT IV THIS SHIFT. INCONTINENT, ATTENDS IN PLACE. NO ACUTE CHANGES AT THIS TIME. BED IN LOWEST POSITION WITH CALL LIGHT IN REACH. WILL CONTINUE TO MONITOR AND REPORT TO ONCOMING RN.
[2021-03-08 08:57] LABS: Anion Gap 6 mmol/L (6-16); Blood Urea Nitrogen 30 mg/dL (8-24); CO2, Blood 24 mmol/L (21-32); Calcium, Blood 8.3 mg/dL (8.5-10.1); Chloride, Blood 111 mmol/L (98-108); Creatinine, Blood 1.67 mg/dL (0.40-1.00); Glomerular Filtration Rate 33 (60-); Glucose, Blood 81 mg/dL (70-99); Phosphorus, Blood 1.8 mg/dL (2.5-4.9); Potassium, Blood 4.5 mmol/L (3.5-5.5); Sodium, Blood 141 mmol/L (136-145)
--- NOTE | 2021-03-08 19:04 | NUR ---
SHIFT SUMMARY PT VERY WEAK AND CONFUSED. UNABLE TO FOLLOW MOST DIRECTIONS, BUT WANTS TO BE CO-OP. PT'S MOTHER CALLED TO GET UPDATE; PT GAVE VERBAL OK TO TALK TO NENITA, PT'S MOM. PT'S MOM ALSO CALLED PT AND STAFF, MULTIPLE TIMES TODAY. DR GUAJARDO ATTEMPTED TO CALL PT'S MOM SEVERAL TIMES, BUT LINE WAS ALWAYS BUSY AND THEREFORE, UNABLE TO EVEN LEAVE A MESSAGE. DR GUAJARDO TO ATTEMPT TO CALL NENITA AGAIN IN AM. P/T IN TO WORK WITH PT TODAY. PT HAD DIFFICULT TIME FOLLOWING DIRECTIONS. PT WAS ABLE TO GET TO CHAIR AT BS USING FWW AND GB WITH 1P ASSIST. 2P MAX ASSIST TO GET PT BACK INTO BED. PT VERY WEAK AND DROWSY SITTING UP. PT ALSO INCONTINENT OF BOWEL AND BLADDER. REPORT GIVEN TO ONCOMING RN.
[2021-03-09 05:19] LABS: Albumin, Blood 2.3 g/dL (3.4-5.0); Anion Gap 6 mmol/L (6-16); Blood Urea Nitrogen 24 mg/dL (8-24); Bun/Creatinine Ratio 18.5 (12.0-20.0); CO2, Blood 22 mmol/L (21-32); Calcium, Blood 8.4 mg/dL (8.5-10.1); Chloride, Blood 115 mmol/L (98-108); Glomerular Filtration Rate 45 (60-); Glucose, Blood 77 mg/dL (70-99); Phosphorus, Blood 2.8 mg/dL (2.5-4.9); Potassium, Blood 4.9 mmol/L (3.5-5.5); Sodium, Blood 143 mmol/L (136-145)
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
--- NOTE | 2021-03-09 19:07 | NUR ---
SHIFT SUMMARY PT RESTING QUIETLY AT START OF SHIFT, AFTER NEEDING ATIVAN FOR ALCOLHOL W/D. PT WOKE TO VERBAL STIMULI THRU OUT THE DAY, BUT DID NOT WAKE ENOUGH TO EAT OR DRINK ANYTHING SAFELY. PT HAS BEEN RESTLESS OFF AND ON MOST OF THE DAY, EVEN THOUGH DROWSY. TURNING AND ROLLING AROUND IN BED. PT'S MOM HERE TO VISIT THIS AFTERNOON FROM [place]. UPDATE GIVEN. PT ONLY ANS'D WITH ONE WORD RESPONSES. PT HAS BEEN INCONTINENT OF BOWEL AND BLADDER. ATTENDS CHANGED NEEDED. BED BATH GIVEN THIS AM. NO S/SX OF DISTRESS NOTED. BED ALARM ON FOR SAFETY. CALL LT IN REACH.
--- NOTE | 2021-03-10 04:05 | NUR ---
SHIFT SUMMARY PT DROWSY T/O NIGHT, AWAKENS TO VERBAL STIMULI. CIWA PER PROTOCOL. VSS, NO ACUTE CHANGES AT THIS TIME. BED IN LOWEST POSITION WITH CALL LIGHT IN REACH. WILL CONTINUE TO MONITOR AND REPORT TO ONCOMING RN.
--- NOTE | 2021-03-10 16:22 | NUR ---
PT IS A/OX2, TO SELF AND PLACE, THE PT APPEARS TO BE BREATHING EASILY ON RA AT THIS TIME, PT HAS BEEN DROWSY/SLEEPY FOR MOST OF THE AM, THIS AFTERNOON THE PT APPEARS TO BE MORE AWAKE, THE IS UP WITH MODERATE ASSIST TO THE BATHROOM, PER PHYSICAL THERAPY THE PT IS ABLE TO STABLE HERSELF BETTER WITH THE FWW, THE PT HAS A GOOD APPETITE DRINKING FLUIDS, LAST CIWA SCORE WAS 4 PER THIS RN, CALL LIGHT IN REACH WILL CONTINUE TO MONITOR AND ASSESS FOR CHANGES
--- NOTE | 2021-03-11 04:24 | NUR ---
SHIFT SUMMARY ADMITTED FOR TOXIC METABOLIC ENCEPHALOPATHY. FULL CODE. FOUND TO HAVE UTI/CATHERINE. SHE IS UNSTEADY ON HER FEET. WE ARE USING THE BSC THIS SHIFT DUE TO HER UNSTEADY GAIT. SHE IS CONFUSED AT TIMES, SHE DID PULL OUT HER IV. IV ANTIBIOTICS ARE SCHEDULED. IV FLUIDS INFUSING ORDERED. Q4 CIWA'S RUN 4-5. HOPEFUL FOR ADAPT REHAB FOLLOWING DC. HX: ETOH, CIRRHOSIS, ESOPHAGEAL VARICES, GI BLEED.
[2021-03-11 05:03] LABS: Albumin, Blood 2.1 g/dL (3.4-5.0); Anion Gap 5 mmol/L (6-16); Blood Urea Nitrogen 14 mg/dL (8-24); Bun/Creatinine Ratio 13.9 (12.0-20.0); CO2, Blood 21 mmol/L (21-32); Calcium, Blood 8.1 mg/dL (8.5-10.1); Chloride, Blood 112 mmol/L (98-108); Creatinine, Blood 1.01 mg/dL (0.40-1.00); Glomerular Filtration Rate 60 (60-); Glucose, Blood 117 mg/dL (70-99); Phosphorus, Blood 1.9 mg/dL (2.5-4.9); Potassium, Blood 4.7 mmol/L (3.5-5.5); Sodium, Blood 138 mmol/L (136-145)
[2021-03-11] MEDS ORDERED: MULVITA PO (12:15)
[2021-03-11] MEDS ORDERED: B-1100 M1 PO (12:16)
--- NOTE | 2021-03-11 13:34 | NUR ---
Met pt. lying in bed she reports to be doing much better today , encouraged pt. and prayed for her.
[2021-03-11] MEDS ORDERED: CIPR500 PO (15:29)
[2021-03-11] MEDS ORDERED: LACT PO (15:30)
--- NOTE | 2021-03-11 16:58 | NUR ---
PT DISCHARGED THE PT AND HER MOTHER VERBALIZED UNDERSATNDING OF THE DC INSTRUCTIONS, THE PTS PRESCRIPTIONS WERE FAXED TO [facility] THE PT REQUESTED, THE PT WAS TRANSFERED VIA WHEELCHAIR ACCOMPANIED BY THE TEACHER VOCATIONAL TRAINING AND HER MOTHER, ABRAHAM FROM HOME HEALTH SPOKE WITH THE PT AND HER MOTHER BEFORE DC, A FOLLOW UP APPOINTMENT WAS MADE FOR THE PT PRIOR TO DC, PT APPEARED TO BE BREATHING EASILY AT THE TIME OF DC
== END 2021-03-11 16:58 | disposition home health service (06) | DRG 682 ==
LOC: ER 20:54 → MEDS 03-07 00:36
PROVIDERS: Emergency Medicine; Internal Medicine; ADMIT Internal Medicine
DX: N17.9 Acute kidney failure, unspecified (principal); G92 Toxic encephalopathy; N39.0 Urinary tract infection, site not specified; K76.6 Portal hypertension; F10.239 Alcohol dependence with withdrawal, unspecified; N18.30 Chronic kidney disease, stage 3 unspecified; E86.0 Dehydration; B96.20 Unspecified Escherichia coli [E. coli] as the cause of diseases classified elsewhere; E21.2 Other hyperparathyroidism; K70.30 Alcoholic cirrhosis of liver without ascites; K21.9 Gastro-esophageal reflux disease without esophagitis; E83.39 Other disorders of phosphorus metabolism; E87.6 Hypokalemia; I10 Essential (primary) hypertension; E03.9 Hypothyroidism, unspecified; D63.1 Anemia in chronic kidney disease; F12.929 Cannabis use, unspecified with intoxication, unspecified; R29.6 Repeated falls; Z91.81 History of falling; Z87.891 Personal history of nicotine dependence
CPT/HCPCS: 36415; 70450; 71046; 72125; 76770; 80048; 80053; 80069; 81001; 82140; 82947; 83690; 84443; 85025; 87077; 87086; 87186; 93005; 93010; 96374; 97110; 97116; 97162; 97166; 97530; 97535; 99285-25; A9270; A9270-GY; C9113; G0480; J0696; J1644; J2060; J3411; J3475; J3480; J7042; J7050; J7060

== ENCOUNTER 2021-04-04 23:44 | Observation (INO) | payer OTHER ==
[~2021-04-04] VITALS: Ht 167.6 cm; Wt 64.8 kg
[~2021-04-04 23:44] MED LIST changes: +B-1100 M1 PO; +CIPR500 PO; +LACT PO; +MULVITA PO
[2021-04-04] MEDS ORDERED: LISI20 PO (23:55)
[2021-04-04] MEDS ORDERED: PROP10 PO (23:56)
[2021-04-05 00:15] LABS: BASOPHILS ABSOLUTE AUTO 0.07 K/mm3 (0.00-0.23); BASOPHILS PERCENT AUTO 1 % (0-2); EOSINOPHILS ABSOLUTE AUTO 0.47 K/mm3 (0.00-0.68); EOSINOPHILS PERCENT AUTO 4 % (0-6); Hematocrit 28.5 % (33.0-51.0); Hemoglobin 9.2 g/dL (11.5-16.0); IMMATURE GRAN ABSOLUTE AUTO 0.04 K/mm3 (0.00-0.10); IMMATURE GRAN PERCENT AUTO 0 % (0-1); LYMPHOCYTES ABSOLUTE AUTO 2.71 K/mm3 (0.84-5.20); LYMPHOCYTES PERCENT AUTO 25 % (21-46); MONOCYTES PERCENT AUTO 10 % (4-13); Mean Corpuscular HGB 27.1 pg (26.0-34.0); Mean Corpuscular HGB Conc 32.3 g/dL (31.5-36.5); Mean Corpuscular Volume 84 fL (80-100); Mean Platelet Volume 9.1 fL (9.1-12.4); NEUTROPHILS ABSOLUTE AUTO 6.45 K/mm3 (1.96-9.15); NEUTROPHILS PERCENT AUTO 60 % (41-73); Platelet Count 427 K/mm3 (150-400); RDW Coefficient Variation 17.2 % (11.7-14.2); RDW Standard Deviation 52.9 fL (35.1-46.3); Red Blood Cell Count 3.39 M/mm3 (3.80-5.20); White Blood Cell Count 10.84 K/mm3 (4.00-11.30)
[2021-04-05 00:35] LABS: Alanine Aminotransfer (ALT/SGP 25 U/L (12-78); Albumin, Blood 2.7 g/dL (3.4-5.0); Albumin/Globulin Ratio 0.6 (0.8-1.8); Alk Phos 169 U/L (50-136); Anion Gap 4 mmol/L (6-16); Aspartate Aminotrans (AST/SGOT 41 U/L (12-37); Bilirubin, Total 0.6 mg/dL (0.1-1.0); Blood Urea Nitrogen 37 mg/dL (8-24); Bun/Creatinine Ratio 27.6 (12.0-20.0); CO2, Blood 26 mmol/L (21-32); Calcium, Blood 9.5 mg/dL (8.5-10.1); Chloride, Blood 105 mmol/L (98-108); Creatinine, Blood 1.34 mg/dL (0.40-1.00); Ethanol (Alcohol), Blood, Med <3 mg/dL; Globulin, Blood 4.7 g/dL (2.2-4.0); Glomerular Filtration Rate 43 (60-); Glucose, Blood 119 mg/dL (70-99); Potassium, Blood 4.4 mmol/L (3.5-5.5); Sodium, Blood 135 mmol/L (136-145); Total Protein, Blood 7.4 g/dL (6.4-8.2)
[2021-04-05 02:10] LABS: Source, Urine Clean Catch
[2021-04-05 02:11] LABS: Bilirubin, Urine Neg (Neg); Blood, Urine Neg (Neg); Glucose Qualitative, Urine Neg (Neg); Ketones, Urine Neg (Neg); Leukocyte Esterase, Urine Neg (Neg); Nitrite, Urine Neg (Neg); Protein, Urine 1+ (Neg); Specific Gravity, Urine 1.015 (1.003-1.022); Urobilinogen, Urine NORM (Normal)
[2021-04-05 02:16] LABS: Appearance, Urine Clear (Clear); Color, Urine Yellow (P-Yellow)
[2021-04-05] MEDS ORDERED: MULTIVITAMIN PO (03:06)
[2021-04-05] MEDS ORDERED: PROBIOTIC PO (03:06)
[2021-04-05] MEDS ORDERED: PANT20 PO (03:07)
[2021-04-05] MEDS ORDERED: B-1100 M1 PO (03:07)
[2021-04-05] MEDS ORDERED: ONE DAILY ESS400 MCG PO (03:08)
[2021-04-05] MEDS ORDERED: Prinivil10 MG PO (03:14)
[2021-04-05] MEDS ORDERED: THERA-D2000 UNIT PO (03:15)
[2021-04-05] MEDS ORDERED: Vitamin C100 M1 PO (03:15)
[2021-04-05] MEDS ORDERED: ZINC15 PO (03:15)
--- NOTE | 2021-04-05 05:35 | NUR ---
SHIFT SUMMARY PT WAS A NEW ADMIT DURING THE NIGHT, ARRIVING ON THE FLOOR AT 0255. PT WAS ADMITTED FOR GASTRITIS AND EPIGASTRIC PAIN, WITH A HX OF GI BLEED. SHE IS A&O X 4, SBA TO THE BSC. PT REPORTED EPIGASTRIC PAIN WAS "BETTER THAN WHEN I CAME IN". DENIED ANY NAUSEA OR SOB. VITAL SIGNS STABLE. PT RECEIVED 1L BANANA BAG, STARTED ON CONTINUOUS IV PROTONIX DRIP. NO ACUTE CHANGES IN PT CONDITION NOTED DURING THE NIGHT. WILL CONTINUE TO MONITOR AND TREAT PER EMAR UNTIL HAND OFF TO DAY SHIFT RN.
[2021-04-05 12:49] LABS: BASOPHILS ABSOLUTE AUTO 0.07 K/mm3 (0.00-0.23); BASOPHILS PERCENT AUTO 1 % (0-2); EOSINOPHILS ABSOLUTE AUTO 0.41 K/mm3 (0.00-0.68); EOSINOPHILS PERCENT AUTO 5 % (0-6); Hematocrit 28.6 % (33.0-51.0); IMMATURE GRAN ABSOLUTE AUTO 0.02 K/mm3 (0.00-0.10); IMMATURE GRAN PERCENT AUTO 0 % (0-1); LYMPHOCYTES PERCENT AUTO 27 % (21-46); MONOCYTES ABSOLUTE AUTO 0.87 K/mm3 (0.16-1.47); MONOCYTES PERCENT AUTO 10 % (4-13); Mean Corpuscular HGB 26.6 pg (26.0-34.0); Mean Corpuscular HGB Conc 31.5 g/dL (31.5-36.5); Mean Corpuscular Volume 85 fL (80-100); Mean Platelet Volume 9.5 fL (9.1-12.4); NEUTROPHILS ABSOLUTE AUTO 5.01 K/mm3 (1.96-9.15); NEUTROPHILS PERCENT AUTO 57 % (41-73); Platelet Count 388 K/mm3 (150-400); RDW Coefficient Variation 17.6 % (11.7-14.2); RDW Standard Deviation 54.2 fL (35.1-46.3); Red Blood Cell Count 3.38 M/mm3 (3.80-5.20); White Blood Cell Count 8.78 K/mm3 (4.00-11.30)
[2021-04-05] MEDS ORDERED: LACT10SY PO (13:01)
[2021-04-05 13:16] LABS: Alanine Aminotransfer (ALT/SGP 24 U/L (12-78); Albumin, Blood 2.7 g/dL (3.4-5.0); Albumin/Globulin Ratio 0.6 (0.8-1.8); Alk Phos 148 U/L (50-136); Anion Gap 6 mmol/L (6-16); Aspartate Aminotrans (AST/SGOT 45 U/L (12-37); Bilirubin, Total 0.7 mg/dL (0.1-1.0); Blood Urea Nitrogen 25 mg/dL (8-24); Bun/Creatinine Ratio 25.2 (12.0-20.0); CO2, Blood 23 mmol/L (21-32); Calcium, Blood 9.3 mg/dL (8.5-10.1); Chloride, Blood 109 mmol/L (98-108); Creatinine, Blood 0.99 mg/dL (0.40-1.00); Globulin, Blood 4.6 g/dL (2.2-4.0); Glomerular Filtration Rate >60 (60-); Glucose, Blood 120 mg/dL (70-99); Potassium, Blood 4.2 mmol/L (3.5-5.5); Sodium, Blood 138 mmol/L (136-145); Total Protein, Blood 7.3 g/dL (6.4-8.2)
--- NOTE | 2021-04-05 14:05 | NUR ---
PATIENT ATE MEAL AT LUNCH WITHOUT PROBLEMS. DISCHARGE INSTRUCTIONS PLACED AND EXPLAINED TO PATIENT. ALL QUESTIONS ANSWERED. IV'S REMOVED. PATIENT CALLED [facility] FOR TRANSPORT HOME. PATIENT ESCORTED OUT IN WHEELCHAIR AT 1345.
== END 2021-04-05 13:38 | disposition home or self-care (01) ==
LOC: ER 23:44 → MEDS 23:46 → ER 04-05 01:49 → MEDS 04-05 01:49
PROVIDERS: Emergency Medicine; ADMIT Internal Medicine
DX: R10.13 Epigastric pain (principal); K59.00 Constipation, unspecified; I12.9 Hypertensive chronic kidney disease with stage 1 through stage 4 chronic kidney disease, or unspecified chronic kidney disease; N18.30 Chronic kidney disease, stage 3 unspecified; K70.30 Alcoholic cirrhosis of liver without ascites; K76.6 Portal hypertension; I85.10 Secondary esophageal varices without bleeding; F10.20 Alcohol dependence, uncomplicated; E03.9 Hypothyroidism, unspecified
CPT/HCPCS: 36415; 74177; 80053; 82140; 83690; 85025; 86301; 93005; 93010; 96365; 96366; 96372; 96375; 96376; 99285-25; A9270; C9113; G0378; G0480; J1650; J3411; J3475; J7042; Q9967

== ENCOUNTER 2021-07-05 18:22 | Emergency (ER) | payer OTHER ==
[~2021-07-05] VITALS: Ht 152.4 cm; Wt 68.0 kg
[~2021-07-05 18:22] MED LIST changes: +ASCO500 PO; +HAIR, SKIN AND1 EAC3 PO; +LACT10SY PO; +LISI20 PO; +MULTIVITAMIN PO; +PROBIOTIC PO; +THERA-D2000 UNIT PO; +ZINC15 PO
== END 2021-07-05 19:21 | disposition home or self-care (01) ==
LOC: ER 18:22
DX: S09.90XA Unspecified injury of head, initial encounter (principal); W18.30XA Fall on same level, unspecified, initial encounter; Z79.899 Other long term (current) drug therapy; Y93.89 Activity, other specified; Y92.59 Other trade areas as the place of occurrence of the external cause; Y99.0 Civilian activity done for income or pay
CPT/HCPCS: 99282

== ENCOUNTER 2021-07-24 18:38 | Inpatient (IN) | payer OTHER ==
[~2021-07-24] VITALS: Ht 152.4 cm; Wt 63.5 kg
[2021-07-24 18:56] LABS: Hematocrit 23.9 % (33.0-51.0); Hemoglobin 7.2 g/dL (11.5-16.0); Mean Corpuscular HGB Conc 30.1 g/dL (31.5-36.5); Mean Corpuscular Volume 83 fL (80-100); Mean Platelet Volume 10.5 fL (9.1-12.4); Platelet Count 300 K/mm3 (150-400); RDW Coefficient Variation 16.7 % (11.7-14.2); RDW Standard Deviation 49.5 fL (35.1-46.3); Red Blood Cell Count 2.88 M/mm3 (3.80-5.20); White Blood Cell Count 8.42 K/mm3 (4.00-11.30)
[2021-07-24 19:22] LABS: BASOPHILS ABSOLUTE MAN 0.08 K/mm3 (0.00-0.23); BASOPHILS PERCENT MAN 1 % (0-2); Bun/Creatinine Ratio 44.4 (12.0-20.0); Calcium, Blood 8.6 mg/dL (8.5-10.1); Creatinine, Blood 0.99 mg/dL (0.40-1.00); EOSINOPHILS ABSOLUTE MAN 0.16 K/mm3 (0.00-0.68); EOSINOPHILS PERCENT MAN 2 % (0-6); LYMPHOCYTES % ATYPICAL MANUAL 3 % (0-0); LYMPHOCYTES ABSOLUTE MAN 3.03 K/mm3 (0.84-5.20); LYMPHOCYTES PERCENT MAN 33 % (21-46); MONOCYTES PERCENT MAN 6 % (4-13); NEUTROPHILS ABSOLUTE MAN 4.63 K/mm3 (1.96-9.15); Potassium, Blood 4.9 mmol/L (3.5-5.5); SEG NEUTROPHILS PERCENT MAN 55 % (41-73); TOTAL CELLS COUNTED 100
[2021-07-24] MEDS ORDERED: Inderal 20 mg T20 MG PO (19:53)
[2021-07-24 20:24] LABS: International Normalized Ratio 1.16; Prothrombin Time Results 12.4 Sec (9.7-11.5)
[2021-07-24 21:47] LABS: Hematocrit 22.9 % (33.0-51.0); Hemoglobin 7.1 g/dL (11.5-16.0); Mean Corpuscular HGB 25.2 pg (26.0-34.0); Mean Corpuscular Volume 81 fL (80-100); Mean Platelet Volume 10.6 fL (9.1-12.4); Platelet Count 289 K/mm3 (150-400); RDW Coefficient Variation 16.6 % (11.7-14.2); RDW Standard Deviation 48.4 fL (35.1-46.3); Red Blood Cell Count 2.82 M/mm3 (3.80-5.20); White Blood Cell Count 10.56 K/mm3 (4.00-11.30)
[2021-07-24 23:54] LABS: SARS-Cov-2 (COVID-19) PCR, MMC NEGATIVE (NEGATIVE)
[2021-07-25 02:31] LABS: BASOPHILS ABSOLUTE AUTO 0.05 K/mm3 (0.00-0.23); BASOPHILS PERCENT AUTO 1 % (0-2); EOSINOPHILS PERCENT AUTO 2 % (0-6); Hematocrit 20.3 % (33.0-51.0); Hemoglobin 6.2 g/dL (11.5-16.0); Mean Corpuscular HGB 25.2 pg (26.0-34.0); Mean Corpuscular HGB Conc 30.5 g/dL (31.5-36.5); Mean Corpuscular Volume 83 fL (80-100); Mean Platelet Volume 10.4 fL (9.1-12.4); Platelet Count 227 K/mm3 (150-400); RDW Coefficient Variation 16.8 % (11.7-14.2); RDW Standard Deviation 48.6 fL (35.1-46.3); Red Blood Cell Count 2.46 M/mm3 (3.80-5.20); White Blood Cell Count 9.09 K/mm3 (4.00-11.30)
[2021-07-25 02:44] LABS: IMMATURE GRAN ABSOLUTE AUTO 0.02 K/mm3 (0.00-0.10); IMMATURE GRAN PERCENT AUTO 0 % (0-1); LYMPHOCYTES ABSOLUTE AUTO 2.92 K/mm3 (0.84-5.20); LYMPHOCYTES PERCENT AUTO 32 % (21-46); MONOCYTES ABSOLUTE AUTO 0.89 K/mm3 (0.16-1.47); MONOCYTES PERCENT AUTO 10 % (4-13); NEUTROPHILS ABSOLUTE AUTO 5.01 K/mm3 (1.96-9.15); NEUTROPHILS PERCENT AUTO 55 % (41-73)
[2021-07-25 02:49] LABS: Alanine Aminotransfer (ALT/SGP 19 U/L (12-78); Albumin, Blood 2.7 g/dL (3.4-5.0); Albumin/Globulin Ratio 0.8 (0.8-1.8); Alk Phos 101 U/L (50-136); Anion Gap 7 mmol/L (6-16); Aspartate Aminotrans (AST/SGOT 31 U/L (12-37); Bilirubin, Total 0.8 mg/dL (0.1-1.0); Blood Urea Nitrogen 43 mg/dL (8-24); Bun/Creatinine Ratio 46.1 (12.0-20.0); CO2, Blood 22 mmol/L (21-32); Calcium, Blood 8.6 mg/dL (8.5-10.1); Chloride, Blood 109 mmol/L (98-108); Creatinine, Blood 0.93 mg/dL (0.40-1.00); Globulin, Blood 3.4 g/dL (2.2-4.0); Glomerular Filtration Rate >60 (60-); Glucose, Blood 194 mg/dL (70-99); Potassium, Blood 3.9 mmol/L (3.5-5.5); Sodium, Blood 138 mmol/L (136-145); Total Protein, Blood 6.1 g/dL (6.4-8.2)
[2021-07-25 11:07] LABS: Hematocrit 23.4 % (33.0-51.0); Hemoglobin 7.3 g/dL (11.5-16.0)
[2021-07-25 16:50] LABS: Hematocrit 27.3 % (33.0-51.0); Hemoglobin 8.5 g/dL (11.5-16.0)
[2021-07-25] MEDS ORDERED: PROP10 PO (17:56)
[2021-07-25] MEDS ORDERED: IBUP200 PO (17:58)
[2021-07-25] MEDS ORDERED: MELATONIN1 M1 PO (18:00)
[2021-07-25] MEDS ORDERED: OMEP20ER PO (18:01)
[2021-07-25 20:41] LABS: Hematocrit 24.5 % (33.0-51.0); Hemoglobin 7.5 g/dL (11.5-16.0)
[2021-07-26 02:32] LABS: BASOPHILS ABSOLUTE AUTO 0.05 K/mm3 (0.00-0.23); BASOPHILS PERCENT AUTO 1 % (0-2); EOSINOPHILS ABSOLUTE AUTO 0.35 K/mm3 (0.00-0.68); EOSINOPHILS PERCENT AUTO 5 % (0-6); Hematocrit 26.1 % (33.0-51.0); IMMATURE GRAN ABSOLUTE AUTO 0.02 K/mm3 (0.00-0.10); IMMATURE GRAN PERCENT AUTO 0 % (0-1); LYMPHOCYTES ABSOLUTE AUTO 1.77 K/mm3 (0.84-5.20); LYMPHOCYTES PERCENT AUTO 27 % (21-46); MONOCYTES ABSOLUTE AUTO 0.77 K/mm3 (0.16-1.47); MONOCYTES PERCENT AUTO 12 % (4-13); Mean Corpuscular HGB 25.5 pg (26.0-34.0); Mean Corpuscular HGB Conc 30.7 g/dL (31.5-36.5); Mean Corpuscular Volume 83 fL (80-100); Mean Platelet Volume 10.3 fL (9.1-12.4); NEUTROPHILS ABSOLUTE AUTO 3.54 K/mm3 (1.96-9.15); NEUTROPHILS PERCENT AUTO 55 % (41-73); Platelet Count 234 K/mm3 (150-400); RDW Standard Deviation 49.8 fL (35.1-46.3); Red Blood Cell Count 3.14 M/mm3 (3.80-5.20)
[2021-07-26 09:15] LABS: Hematocrit 26.5 % (33.0-51.0)
== END 2021-07-26 15:00 | disposition home or self-care (01) | DRG 432 ==
LOC: ER 18:38 → ERHOLD 18:39 → ER 20:23 → ORSCIP 07-25 14:17
PROVIDERS: Internal Medicine Gastroenterology; Student in an Organized Health Care Education/Training Program; ADMIT Internal Medicine
PROC: 30233N1 Transfusion of Nonautologous Red Blood Cells into Peripheral Vein, Percutaneous Approach (ICD-10-PCS; principal; 2021-07-26)
PROC: 0DJ08ZZ Inspection of Upper Intestinal Tract, Via Natural or Artificial Opening Endoscopic (ICD-10-PCS; 2021-07-26)
DX: K70.30 Alcoholic cirrhosis of liver without ascites (principal); I85.11 Secondary esophageal varices with bleeding; K76.6 Portal hypertension; Z20.822 Contact with and (suspected) exposure to COVID-19; K80.20 Calculus of gallbladder without cholecystitis without obstruction; K31.89 Other diseases of stomach and duodenum; E03.9 Hypothyroidism, unspecified; N18.30 Chronic kidney disease, stage 3 unspecified; F10.20 Alcohol dependence, uncomplicated; I12.9 Hypertensive chronic kidney disease with stage 1 through stage 4 chronic kidney disease, or unspecified chronic kidney disease; Z90.89 Acquired absence of other organs; Z98.890 Other specified postprocedural states; Z71.41 Alcohol abuse counseling and surveillance of alcoholic; Z90.49 Acquired absence of other specified parts of digestive tract
CPT/HCPCS: 36415; 36430; 76705; 80048; 80053; 82105; 82272; 85014; 85018; 85025; 85027; 85610; 85730; 86850; 86900; 86901; 86923; 96365; 96366; 96367; 96368; 96375; 96376; 99285-25; A9270; C9113; G0378; J0696; J2250; J2354; J2405; J2704; J2765; J7030; J7050; J7120; P9016; U0004

== ENCOUNTER 2021-09-13 15:09 | Emergency (ER) | payer OTHER ==
[~2021-09-13] VITALS: Ht 152.4 cm; Wt 68.0 kg
[~2021-09-13 15:09] MED LIST changes: +IBUP200 PO; +MELATONIN1 M1 PO; +PROP10 PO
[2021-09-13] MEDS ORDERED: PANT20 PO ×2 (15:19→15:21)
[2021-09-13] MEDS ORDERED: Nadolol20 MG PO (15:20)
[2021-09-13] MEDS ORDERED: Synthroid112 MCG PO (15:21)
== END 2021-09-13 15:21 | disposition home or self-care (01) ==
LOC: ER 15:09
DX: E03.9 Hypothyroidism, unspecified (principal); K21.9 Gastro-esophageal reflux disease without esophagitis; Z76.0 Encounter for issue of repeat prescription; Z79.899 Other long term (current) drug therapy
CPT/HCPCS: 99281

== ENCOUNTER 2021-10-18 11:43 | Emergency (ER) | payer OTHER ==
[~2021-10-18] VITALS: Ht 152.4 cm; Wt 74.8 kg
[~2021-10-18 11:43] MED LIST changes: +Nadolol20 MG PO; +Synthroid112 MCG PO
[2021-10-18 12:11] LABS: BASOPHILS ABSOLUTE AUTO 0.07 K/mm3 (0.00-0.23); BASOPHILS PERCENT AUTO 1 % (0-2); EOSINOPHILS ABSOLUTE AUTO 0.13 K/mm3 (0.00-0.68); EOSINOPHILS PERCENT AUTO 2 % (0-6); Hematocrit 30.7 % (33.0-51.0); Hemoglobin 8.7 g/dL (11.5-16.0); IMMATURE GRAN ABSOLUTE AUTO 0.03 K/mm3 (0.00-0.10); IMMATURE GRAN PERCENT AUTO 1 % (0-1); LYMPHOCYTES ABSOLUTE AUTO 1.44 K/mm3 (0.84-5.20); LYMPHOCYTES PERCENT AUTO 23 % (21-46); MONOCYTES ABSOLUTE AUTO 0.76 K/mm3 (0.16-1.47); MONOCYTES PERCENT AUTO 12 % (4-13); Mean Corpuscular HGB 20.8 pg (26.0-34.0); Mean Corpuscular HGB Conc 28.3 g/dL (31.5-36.5); Mean Corpuscular Volume 73 fL (80-100); Mean Platelet Volume 10.6 fL (9.1-12.4); NEUTROPHILS ABSOLUTE AUTO 3.91 K/mm3 (1.96-9.15); NEUTROPHILS PERCENT AUTO 62 % (41-73); NRBC ABSOLUTE 0.04 K/mm3 (0.00-0.02); NRBC Auto 0.6 /100 WBC (0.0-0.2); Platelet Count 274 K/mm3 (150-400); RDW Coefficient Variation 19.2 % (11.7-14.2); RDW Standard Deviation 50.2 fL (35.1-46.3); Red Blood Cell Count 4.19 M/mm3 (3.80-5.20); White Blood Cell Count 6.34 K/mm3 (4.00-11.30)
[2021-10-18 12:26] LABS: Alanine Aminotransfer (ALT/SGP 30 U/L (12-78); Albumin, Blood 3.4 g/dL (3.4-5.0); Albumin/Globulin Ratio 0.6 (0.8-1.8); Alk Phos 240 U/L (50-136); Anion Gap 7 mmol/L (6-16); Aspartate Aminotrans (AST/SGOT 66 U/L (12-37); Bilirubin, Total 2.7 mg/dL (0.1-1.0); Blood Urea Nitrogen 13 mg/dL (8-24); Bun/Creatinine Ratio 16.3 (12.0-20.0); CO2, Blood 27 mmol/L (21-32); Calcium, Blood 9.1 mg/dL (8.5-10.1); Chloride, Blood 102 mmol/L (98-108); Globulin, Blood 5.4 g/dL (2.2-4.0); Glomerular Filtration Rate >60 (60-); Glucose, Blood 130 mg/dL (70-99); Potassium, Blood 3.8 mmol/L (3.5-5.5); Sodium, Blood 136 mmol/L (136-145); Total Protein, Blood 8.8 g/dL (6.4-8.2)
[2021-10-18 15:10] LABS: Source, Urine Clean Catch
[2021-10-18 15:13] LABS: Appearance, Urine Hazy (Clear); Blood, Urine 1+ (Neg); Color, Urine Amber (P-Yellow); Glucose Qualitative, Urine Neg (Neg); Ketones, Urine Neg (Neg); Leukocyte Esterase, Urine 1+ (Neg); Nitrite, Urine Neg (Neg); Protein, Urine 2+ (Neg); Urobilinogen, Urine 3+ (Normal)
[2021-10-18 15:22] LABS: Bacteria Mod /hpf; Squamous Epithelial Cells Many /hpf (Few)
[2021-10-18 15:23] LABS: Amorphous Mod (0-Heavy); Mucus Mod (0-Heavy)
[2021-10-18 15:26] LABS: Bilirubin, Urine Neg (Neg)
[2021-10-18] MEDS ORDERED: ONDA4ODT MM (17:04)
== END 2021-10-18 17:15 | disposition home or self-care (01) ==
LOC: ER 11:43
PROVIDERS: Physician Assistant
DX: R19.7 Diarrhea, unspecified (principal); R11.2 Nausea with vomiting, unspecified; R79.89 Other specified abnormal findings of blood chemistry; E03.9 Hypothyroidism, unspecified; Z79.899 Other long term (current) drug therapy
CPT/HCPCS: 36415; 76705; 80053; 81001; 83690; 85025; 87077; 87086; 87186; 96374; 99285-25; J2405; J7030

== ENCOUNTER 2021-11-23 20:46 | Emergency (ER) | payer OTHER ==
[~2021-11-23] VITALS: Ht 152.4 cm; Wt 72.6 kg
[2021-11-23 23:08] LABS: BASOPHILS ABSOLUTE AUTO 0.08 K/mm3 (0.00-0.23); BASOPHILS PERCENT AUTO 1 % (0-2); EOSINOPHILS ABSOLUTE AUTO 0.14 K/mm3 (0.00-0.68); EOSINOPHILS PERCENT AUTO 2 % (0-6); Hematocrit 28.5 % (33.0-51.0); Hemoglobin 8.2 g/dL (11.5-16.0); IMMATURE GRAN ABSOLUTE AUTO 0.03 K/mm3 (0.00-0.10); IMMATURE GRAN PERCENT AUTO 0 % (0-1); LYMPHOCYTES ABSOLUTE AUTO 1.43 K/mm3 (0.84-5.20); LYMPHOCYTES PERCENT AUTO 18 % (21-46); MONOCYTES ABSOLUTE AUTO 0.92 K/mm3 (0.16-1.47); MONOCYTES PERCENT AUTO 12 % (4-13); Mean Corpuscular HGB 21.2 pg (26.0-34.0); Mean Corpuscular HGB Conc 28.8 g/dL (31.5-36.5); Mean Corpuscular Volume 74 fL (80-100); Mean Platelet Volume 9.8 fL (9.1-12.4); NEUTROPHILS ABSOLUTE AUTO 5.29 K/mm3 (1.96-9.15); NEUTROPHILS PERCENT AUTO 67 % (41-73); NRBC ABSOLUTE 0.02 K/mm3 (0.00-0.02); NRBC Auto 0.3 /100 WBC (0.0-0.2); Platelet Count 231 K/mm3 (150-400); RDW Coefficient Variation 20.8 % (11.7-14.2); RDW Standard Deviation 54.3 fL (35.1-46.3); Red Blood Cell Count 3.87 M/mm3 (3.80-5.20); White Blood Cell Count 7.89 K/mm3 (4.00-11.30)
[2021-11-23 23:26] LABS: Alanine Aminotransfer (ALT/SGP 23 U/L (12-78); Albumin, Blood 3.1 g/dL (3.4-5.0); Albumin/Globulin Ratio 0.6 (0.8-1.8); Alk Phos 286 U/L (50-136); Anion Gap 5 mmol/L (6-16); Aspartate Aminotrans (AST/SGOT 70 U/L (12-37); Bilirubin, Total 2.1 mg/dL (0.1-1.0); Blood Urea Nitrogen 11 mg/dL (8-24); Bun/Creatinine Ratio 13.1 (12.0-20.0); CO2, Blood 28 mmol/L (21-32); Calcium, Blood 8.9 mg/dL (8.5-10.1); Chloride, Blood 104 mmol/L (98-108); Creatinine, Blood 0.84 mg/dL (0.40-1.00); Globulin, Blood 5.1 g/dL (2.2-4.0); Glomerular Filtration Rate >60 (60-); Glucose, Blood 123 mg/dL (70-99); Potassium, Blood 3.9 mmol/L (3.5-5.5); Sodium, Blood 137 mmol/L (136-145); Total Protein, Blood 8.2 g/dL (6.4-8.2)
[2021-11-24] MEDS ORDERED: PROM25 PO (00:01)
== END 2021-11-24 00:40 | disposition home or self-care (01) ==
LOC: ER 20:46
PROVIDERS: Emergency Medicine
DX: R19.7 Diarrhea, unspecified (principal); R11.2 Nausea with vomiting, unspecified; I10 Essential (primary) hypertension; E03.9 Hypothyroidism, unspecified; Z79.899 Other long term (current) drug therapy; Z87.891 Personal history of nicotine dependence
CPT/HCPCS: 36415; 80053; 85025; 96374; 99285; A9270; J2405; J7120

== ENCOUNTER 2022-05-29 15:43 | Observation (INO) | payer OTHER ==
[~2022-05-29] VITALS: Ht 152.4 cm; Wt 81.8 kg
[~2022-05-29 15:43] MED LIST changes: +PROM25 PO
[2022-05-29 16:04] LABS: BASOPHILS ABSOLUTE AUTO 0.09 K/mm3 (0.00-0.23); BASOPHILS PERCENT AUTO 1 % (0-2); EOSINOPHILS ABSOLUTE AUTO 0.42 K/mm3 (0.00-0.68); EOSINOPHILS PERCENT AUTO 4 % (0-6); Hematocrit 28.6 % (33.0-51.0); Hemoglobin 9.1 g/dL (11.5-16.0); IMMATURE GRAN ABSOLUTE AUTO 0.12 K/mm3 (0.00-0.10); IMMATURE GRAN PERCENT AUTO 1 % (0-1); LYMPHOCYTES ABSOLUTE AUTO 1.66 K/mm3 (0.84-5.20); LYMPHOCYTES PERCENT AUTO 18 % (21-46); MONOCYTES ABSOLUTE AUTO 0.82 K/mm3 (0.16-1.47); MONOCYTES PERCENT AUTO 9 % (4-13); Mean Corpuscular HGB 27.3 pg (26.0-34.0); Mean Corpuscular HGB Conc 31.8 g/dL (31.5-36.5); Mean Corpuscular Volume 86 fL (80-100); Mean Platelet Volume 10.2 fL (9.1-12.4); NEUTROPHILS ABSOLUTE AUTO 6.35 K/mm3 (1.96-9.15); NEUTROPHILS PERCENT AUTO 67 % (41-73); Platelet Count 354 K/mm3 (150-400); RDW Coefficient Variation 22.5 % (11.7-14.2); Red Blood Cell Count 3.33 M/mm3 (3.80-5.20); White Blood Cell Count 9.46 K/mm3 (4.00-11.30)
[2022-05-29 16:22] LABS: Albumin, Blood 2.2 g/dL (3.4-5.0); Albumin/Globulin Ratio 0.5 (0.8-1.8); Bilirubin, Total 1.5 mg/dL (0.1-1.0); Calcium, Blood 8.7 mg/dL (8.5-10.1); Creatinine, Blood 1.55 mg/dL (0.40-1.00); Globulin, Blood 4.6 g/dL (2.2-4.0); Potassium, Blood 4.7 mmol/L (3.5-5.5); Total Protein, Blood 6.8 g/dL (6.4-8.2)
[2022-05-29 18:13] LABS: BASOPHILS ABSOLUTE AUTO 0.08 K/mm3 (0.00-0.23); BASOPHILS PERCENT AUTO 1 % (0-2); EOSINOPHILS ABSOLUTE AUTO 0.26 K/mm3 (0.00-0.68); EOSINOPHILS PERCENT AUTO 2 % (0-6); Hematocrit 29.2 % (33.0-51.0); Hemoglobin 9.1 g/dL (11.5-16.0); IMMATURE GRAN ABSOLUTE AUTO 0.08 K/mm3 (0.00-0.10); IMMATURE GRAN PERCENT AUTO 1 % (0-1); LYMPHOCYTES ABSOLUTE AUTO 1.72 K/mm3 (0.84-5.20); LYMPHOCYTES PERCENT AUTO 16 % (21-46); MONOCYTES ABSOLUTE AUTO 0.82 K/mm3 (0.16-1.47); MONOCYTES PERCENT AUTO 8 % (4-13); Mean Corpuscular HGB 27.2 pg (26.0-34.0); Mean Corpuscular HGB Conc 31.2 g/dL (31.5-36.5); Mean Corpuscular Volume 87 fL (80-100); NEUTROPHILS ABSOLUTE AUTO 7.68 K/mm3 (1.96-9.15); NEUTROPHILS PERCENT AUTO 72 % (41-73); Platelet Count 314 K/mm3 (150-400); RDW Coefficient Variation 22.4 % (11.7-14.2); RDW Standard Deviation 70.5 fL (35.1-46.3); Red Blood Cell Count 3.34 M/mm3 (3.80-5.20); White Blood Cell Count 10.64 K/mm3 (4.00-11.30)
[2022-05-29 18:28] LABS: Bun/Creatinine Ratio 8.9 (12.0-20.0); Calcium, Blood 8.4 mg/dL (8.5-10.1); Creatinine, Blood 1.57 mg/dL (0.40-1.00); Potassium, Blood 3.7 mmol/L (3.5-5.5)
[2022-05-29 19:41] LABS: Magnesium, Blood 1.4 mg/dL (1.6-2.4)
[2022-05-29 20:05] LABS: Creatine Kinase MB 6.1 ng/mL (0.0-3.6); Creatine Kinase MB Index 2.2 (0.0-4.0)
[2022-05-30] MEDS ORDERED: OTHER (01:16)
[2022-05-30 05:06] LABS: BASOPHILS PERCENT AUTO 1 % (0-2); EOSINOPHILS ABSOLUTE AUTO 0.25 K/mm3 (0.00-0.68); EOSINOPHILS PERCENT AUTO 2 % (0-6); Hematocrit 31.4 % (33.0-51.0); Hemoglobin 9.6 g/dL (11.5-16.0); IMMATURE GRAN ABSOLUTE AUTO 0.04 K/mm3 (0.00-0.10); IMMATURE GRAN PERCENT AUTO 0 % (0-1); LYMPHOCYTES ABSOLUTE AUTO 2.24 K/mm3 (0.84-5.20); LYMPHOCYTES PERCENT AUTO 20 % (21-46); MONOCYTES PERCENT AUTO 8 % (4-13); Mean Corpuscular HGB 27.1 pg (26.0-34.0); Mean Corpuscular HGB Conc 30.6 g/dL (31.5-36.5); Mean Corpuscular Volume 89 fL (80-100); Mean Platelet Volume 9.9 fL (9.1-12.4); NEUTROPHILS ABSOLUTE AUTO 7.51 K/mm3 (1.96-9.15); NEUTROPHILS PERCENT AUTO 68 % (41-73); Platelet Count 327 K/mm3 (150-400); RDW Coefficient Variation 22.4 % (11.7-14.2); RDW Standard Deviation 71.7 fL (35.1-46.3); Red Blood Cell Count 3.54 M/mm3 (3.80-5.20); White Blood Cell Count 11.04 K/mm3 (4.00-11.30)
[2022-05-30 05:24] LABS: Albumin, Blood 2.4 g/dL (3.4-5.0); Albumin/Globulin Ratio 0.5 (0.8-1.8); Bilirubin, Total 1.7 mg/dL (0.1-1.0); Bun/Creatinine Ratio 10.6 (12.0-20.0); Calcium, Blood 8.5 mg/dL (8.5-10.1); Creatinine, Blood 1.32 mg/dL (0.40-1.00); Globulin, Blood 4.5 g/dL (2.2-4.0); Potassium, Blood 3.8 mmol/L (3.5-5.5); Total Protein, Blood 6.9 g/dL (6.4-8.2)
[2022-05-31 05:21] LABS: BASOPHILS ABSOLUTE AUTO 0.11 K/mm3 (0.00-0.23); BASOPHILS PERCENT AUTO 1 % (0-2); EOSINOPHILS ABSOLUTE AUTO 0.57 K/mm3 (0.00-0.68); EOSINOPHILS PERCENT AUTO 4 % (0-6); Hematocrit 30.4 % (33.0-51.0); Hemoglobin 9.1 g/dL (11.5-16.0); IMMATURE GRAN ABSOLUTE AUTO 0.06 K/mm3 (0.00-0.10); IMMATURE GRAN PERCENT AUTO 1 % (0-1); LYMPHOCYTES ABSOLUTE AUTO 2.11 K/mm3 (0.84-5.20); LYMPHOCYTES PERCENT AUTO 16 % (21-46); MONOCYTES ABSOLUTE AUTO 1.02 K/mm3 (0.16-1.47); MONOCYTES PERCENT AUTO 8 % (4-13); Mean Corpuscular HGB 26.7 pg (26.0-34.0); Mean Corpuscular HGB Conc 29.9 g/dL (31.5-36.5); Mean Corpuscular Volume 89 fL (80-100); NEUTROPHILS ABSOLUTE AUTO 9.06 K/mm3 (1.96-9.15); NEUTROPHILS PERCENT AUTO 70 % (41-73); Platelet Count 311 K/mm3 (150-400); RDW Coefficient Variation 21.5 % (11.7-14.2); RDW Standard Deviation 69.4 fL (35.1-46.3); Red Blood Cell Count 3.41 M/mm3 (3.80-5.20); White Blood Cell Count 12.93 K/mm3 (4.00-11.30)
[2022-05-31 05:46] LABS: Bun/Creatinine Ratio 13.2 (12.0-20.0); Calcium, Blood 9.3 mg/dL (8.5-10.1); Creatinine, Blood 1.14 mg/dL (0.40-1.00); Potassium, Blood 3.5 mmol/L (3.5-5.5)
[2022-06-01 05:37] LABS: BASOPHILS ABSOLUTE AUTO 0.14 K/mm3 (0.00-0.23); BASOPHILS PERCENT AUTO 1 % (0-2); EOSINOPHILS ABSOLUTE AUTO 0.77 K/mm3 (0.00-0.68); EOSINOPHILS PERCENT AUTO 7 % (0-6); Hematocrit 31.2 % (33.0-51.0); Hemoglobin 9.5 g/dL (11.5-16.0); IMMATURE GRAN ABSOLUTE AUTO 0.04 K/mm3 (0.00-0.10); IMMATURE GRAN PERCENT AUTO 0 % (0-1); LYMPHOCYTES ABSOLUTE AUTO 2.25 K/mm3 (0.84-5.20); LYMPHOCYTES PERCENT AUTO 19 % (21-46); MONOCYTES ABSOLUTE AUTO 0.95 K/mm3 (0.16-1.47); MONOCYTES PERCENT AUTO 8 % (4-13); Mean Corpuscular HGB 27.1 pg (26.0-34.0); Mean Corpuscular HGB Conc 30.4 g/dL (31.5-36.5); Mean Corpuscular Volume 89 fL (80-100); Mean Platelet Volume 10.1 fL (9.1-12.4); NEUTROPHILS ABSOLUTE AUTO 7.68 K/mm3 (1.96-9.15); NEUTROPHILS PERCENT AUTO 65 % (41-73); Platelet Count 380 K/mm3 (150-400); RDW Coefficient Variation 22.1 % (11.7-14.2); RDW Standard Deviation 70.8 fL (35.1-46.3); White Blood Cell Count 11.83 K/mm3 (4.00-11.30)
[2022-06-01 06:01] LABS: Bun/Creatinine Ratio 13.5 (12.0-20.0); Calcium, Blood 9.3 mg/dL (8.5-10.1); Creatinine, Blood 1.48 mg/dL (0.40-1.00); Potassium, Blood 3.9 mmol/L (3.5-5.5)
[2022-06-02 05:39] LABS: BASOPHILS PERCENT AUTO 1 % (0-2); EOSINOPHILS ABSOLUTE AUTO 0.56 K/mm3 (0.00-0.68); EOSINOPHILS PERCENT AUTO 6 % (0-6); Hematocrit 30.1 % (33.0-51.0); IMMATURE GRAN ABSOLUTE AUTO 0.03 K/mm3 (0.00-0.10); IMMATURE GRAN PERCENT AUTO 0 % (0-1); LYMPHOCYTES ABSOLUTE AUTO 1.82 K/mm3 (0.84-5.20); LYMPHOCYTES PERCENT AUTO 18 % (21-46); MONOCYTES ABSOLUTE AUTO 0.75 K/mm3 (0.16-1.47); MONOCYTES PERCENT AUTO 8 % (4-13); Mean Corpuscular HGB Conc 29.9 g/dL (31.5-36.5); Mean Corpuscular Volume 90 fL (80-100); NEUTROPHILS PERCENT AUTO 68 % (41-73); Platelet Count 347 K/mm3 (150-400); RDW Standard Deviation 71.7 fL (35.1-46.3); Red Blood Cell Count 3.33 M/mm3 (3.80-5.20); White Blood Cell Count 10.06 K/mm3 (4.00-11.30)
[2022-06-02 05:44] LABS: Calcium, Blood 8.7 mg/dL (8.5-10.1); Creatinine, Blood 1.43 mg/dL (0.40-1.00); Potassium, Blood 4.4 mmol/L (3.5-5.5)
[2022-06-03 05:40] LABS: BASOPHILS ABSOLUTE AUTO 0.08 K/mm3 (0.00-0.23); BASOPHILS PERCENT AUTO 1 % (0-2); EOSINOPHILS ABSOLUTE AUTO 0.74 K/mm3 (0.00-0.68); EOSINOPHILS PERCENT AUTO 7 % (0-6); Hematocrit 30.8 % (33.0-51.0); Hemoglobin 9.5 g/dL (11.5-16.0); IMMATURE GRAN ABSOLUTE AUTO 0.03 K/mm3 (0.00-0.10); IMMATURE GRAN PERCENT AUTO 0 % (0-1); LYMPHOCYTES ABSOLUTE AUTO 1.91 K/mm3 (0.84-5.20); LYMPHOCYTES PERCENT AUTO 18 % (21-46); MONOCYTES ABSOLUTE AUTO 0.52 K/mm3 (0.16-1.47); MONOCYTES PERCENT AUTO 5 % (4-13); Mean Corpuscular HGB 27.5 pg (26.0-34.0); Mean Corpuscular HGB Conc 30.8 g/dL (31.5-36.5); Mean Corpuscular Volume 89 fL (80-100); Mean Platelet Volume 9.6 fL (9.1-12.4); NEUTROPHILS ABSOLUTE AUTO 7.12 K/mm3 (1.96-9.15); NEUTROPHILS PERCENT AUTO 68 % (41-73); Platelet Count 343 K/mm3 (150-400); RDW Coefficient Variation 21.8 % (11.7-14.2); RDW Standard Deviation 70.4 fL (35.1-46.3); Red Blood Cell Count 3.45 M/mm3 (3.80-5.20)
[2022-06-03 05:59] LABS: Bun/Creatinine Ratio 15.9 (12.0-20.0); Creatinine, Blood 1.07 mg/dL (0.40-1.00); Potassium, Blood 4.2 mmol/L (3.5-5.5)
[2022-06-03 18:43] LABS: Influenza A, PCR NEGATIVE (NEGATIVE); Influenza B, PCR NEGATIVE (NEGATIVE); Resp Syncytial Virus, PCR NEGATIVE (NEGATIVE); SARS-Cov-2 (COVID-19) PCR, MMC NEGATIVE (NEGATIVE)
[2022-06-04] MEDS ORDERED: AMLO5 PO (13:25)
[2022-06-04] MEDS ORDERED: DOCU100 PO (13:25)
[2022-06-04] MEDS ORDERED: Acetaminophen325 M1 PO (13:25)
[2022-06-04] MEDS ORDERED: DULCOLAX400 MG/5 M PO (13:26)
[2022-06-04] MEDS ORDERED: MELATONIN5 M1 PO (13:26)
[2022-06-04] MEDS ORDERED: PYRI100 PO (13:27)
[2022-06-04] MEDS ORDERED: MULVITA PO (13:27)
[2022-06-04] MEDS ORDERED: B-1100 M1 PO (13:28)
[2022-06-04] MEDS ORDERED: PROM25 PO (13:28)
[2022-06-04] MEDS ORDERED: TRAM50 PO (13:28)
[2022-06-04] MEDS ORDERED: HYDR1TAB94 PO (13:29)
[2022-08-14] MEDS ORDERED: FERSU300 PO (11:48)
== END 2022-06-04 14:19 ==
LOC: ER 15:43 → MEDS 15:44
PROVIDERS: Family Medicine; Physician Assistant; Student in an Organized Health Care Education/Training Program; ADMIT Family Medicine
DX: I95.9 Hypotension, unspecified (principal); N17.9 Acute kidney failure, unspecified; R00.1 Bradycardia, unspecified; S22.42XA Multiple fractures of ribs, left side, initial encounter for closed fracture; W19.XXXA Unspecified fall, initial encounter; M25.512 Pain in left shoulder; D64.9 Anemia, unspecified; I12.9 Hypertensive chronic kidney disease with stage 1 through stage 4 chronic kidney disease, or unspecified chronic kidney disease; N18.9 Chronic kidney disease, unspecified; K76.6 Portal hypertension; E03.9 Hypothyroidism, unspecified; Z79.899 Other long term (current) drug therapy; Z20.822 Contact with and (suspected) exposure to COVID-19
CPT/HCPCS: 0241U; 36415; 70450; 71101; 73060; 80048; 80053; 82550; 82553; 83735; 85025; 86850; 86900; 86901; 93005; 93010; 94760; 94762; 96365; 96375; 96376; 97110; 97116; 97161; 97530; 99285-25; A9270; C9113; G0378; J1170; J2405; J3010; J3475; J7030

== ENCOUNTER → 2022-08-19 | Outpatient (CLI) | payer OTHER ==
[~2022-08-19] MED LIST changes: +ALDACTONE100 MG PO; +AMLO10 PO; +DOCU100 PO; +DOXY100 PO; +DULCOLAX400 MG/5 M PO; +FERSU300 PO; +FURO40 PO; +HYDR1TAB94 PO; +MELATONIN5 M1 PO; +MIDO5 PO; +OTHER; +PYRI100 PO; +TRAM50 PO
[2022-08-19 13:26] LABS: BASOPHILS ABSOLUTE AUTO 0.08 K/mm3 (0.00-0.23); BASOPHILS PERCENT AUTO 2 % (0-2); EOSINOPHILS ABSOLUTE AUTO 0.52 K/mm3 (0.00-0.68); EOSINOPHILS PERCENT AUTO 10 % (0-6); Hematocrit 30.7 % (33.0-51.0); Hemoglobin 9.3 g/dL (11.5-16.0); IMMATURE GRAN ABSOLUTE AUTO 0.02 K/mm3 (0.00-0.10); IMMATURE GRAN PERCENT AUTO 0 % (0-1); LYMPHOCYTES ABSOLUTE AUTO 1.19 K/mm3 (0.84-5.20); LYMPHOCYTES PERCENT AUTO 22 % (21-46); MONOCYTES ABSOLUTE AUTO 0.88 K/mm3 (0.16-1.47); MONOCYTES PERCENT AUTO 16 % (4-13); Mean Corpuscular HGB 26.1 pg (26.0-34.0); Mean Corpuscular HGB Conc 30.3 g/dL (31.5-36.5); Mean Corpuscular Volume 86 fL (80-100); Mean Platelet Volume 10.2 fL (9.1-12.4); NEUTROPHILS ABSOLUTE AUTO 2.79 K/mm3 (1.96-9.15); NEUTROPHILS PERCENT AUTO 51 % (41-73); Platelet Count 253 K/mm3 (150-400); RDW Coefficient Variation 20.4 % (11.7-14.2); RDW Standard Deviation 61.1 fL (35.1-46.3); Red Blood Cell Count 3.57 M/mm3 (3.80-5.20); White Blood Cell Count 5.48 K/mm3 (4.00-11.30)
[2022-08-19 14:08] LABS: Albumin, Blood 3.1 g/dL (3.4-5.0); Albumin/Globulin Ratio 0.8 (0.8-1.8); Bilirubin, Total 1.1 mg/dL (0.1-1.0); Bun/Creatinine Ratio 9.8 (12.0-20.0); Calcium, Blood 9.4 mg/dL (8.5-10.1); Creatinine, Blood 0.91 mg/dL (0.40-1.00); Potassium, Blood 3.9 mmol/L (3.5-5.5); Total Protein, Blood 7.1 g/dL (6.4-8.2)
== END ==
LOC: EDSTATUS 09:57 → LAB RH 12:59
PROVIDERS: Internal Medicine
DX: N17.9 Acute kidney failure, unspecified (principal); K76.6 Portal hypertension
CPT/HCPCS: 80053; 85025

== ENCOUNTER 2022-09-19 15:11 | Inpatient (IN) | payer OTHER ==
[~2022-09-19] VITALS: Ht 152.4 cm; Wt 98.7 kg
[~2022-09-19 15:11] MED LIST changes: -ALDACTONE100 MG PO; -DOXY100 PO; -FURO40 PO; -MIDO5 PO
[2022-09-19 16:00] LABS: BASOPHILS ABSOLUTE AUTO 0.08 K/mm3 (0.00-0.23); BASOPHILS PERCENT AUTO 1 % (0-2); EOSINOPHILS ABSOLUTE AUTO 0.36 K/mm3 (0.00-0.68); EOSINOPHILS PERCENT AUTO 7 % (0-6); Hematocrit 31.8 % (33.0-51.0); Hemoglobin 10.4 g/dL (11.5-16.0); IMMATURE GRAN ABSOLUTE AUTO 0.01 K/mm3 (0.00-0.10); IMMATURE GRAN PERCENT AUTO 0 % (0-1); LYMPHOCYTES ABSOLUTE AUTO 1.24 K/mm3 (0.84-5.20); LYMPHOCYTES PERCENT AUTO 22 % (21-46); MONOCYTES ABSOLUTE AUTO 1.22 K/mm3 (0.16-1.47); MONOCYTES PERCENT AUTO 22 % (4-13); Mean Corpuscular HGB 26.6 pg (26.0-34.0); Mean Corpuscular HGB Conc 32.7 g/dL (31.5-36.5); Mean Corpuscular Volume 81 fL (80-100); Mean Platelet Volume 9.9 fL (9.1-12.4); NEUTROPHILS ABSOLUTE AUTO 2.65 K/mm3 (1.96-9.15); NEUTROPHILS PERCENT AUTO 48 % (41-73); Platelet Count 359 K/mm3 (150-400); RDW Coefficient Variation 21.5 % (11.7-14.2); RDW Standard Deviation 63.7 fL (35.1-46.3); Red Blood Cell Count 3.91 M/mm3 (3.80-5.20); White Blood Cell Count 5.56 K/mm3 (4.00-11.30)
[2022-09-19 16:26] LABS: Albumin, Blood 3.6 g/dL (3.4-5.0); Albumin/Globulin Ratio 0.8 (0.8-1.8); Bilirubin, Total 1.9 mg/dL (0.1-1.0); Bun/Creatinine Ratio 12.3 (12.0-20.0); Calcium, Blood 9.4 mg/dL (8.5-10.1); Creatinine, Blood 2.03 mg/dL (0.40-1.00); Globulin, Blood 4.5 g/dL (2.2-4.0); Potassium, Blood 3.4 mmol/L (3.5-5.5); Total Protein, Blood 8.1 g/dL (6.4-8.2)
[2022-09-19 19:45] LABS: Source, Urine Clean Catch
[2022-09-19 20:05] LABS: Appearance, Urine Cloudy (Clear); Blood, Urine 2+ (Neg); Color, Urine Yellow (P-Yellow); Glucose Qualitative, Urine Neg (Neg); Ketones, Urine 1+ (Neg); Leukocyte Esterase, Urine 2+ (Neg); Nitrite, Urine Neg (Neg); Protein, Urine 2+ (Neg); Specific Gravity, Urine 1.025 (1.003-1.022); Urobilinogen, Urine 3+ (Normal)
[2022-09-19 20:30] LABS: Bilirubin, Urine 2+ (Neg)
[2022-09-19 20:33] LABS: Hyaline Casts 25-50 /lpf (0-2)
[2022-09-19 20:34] LABS: Bacteria Many /hpf; Squamous Epithelial Cells Many /hpf (Few); White Blood Cells, Urine 25-50 /hpf (0-5)
[2022-09-19 20:35] LABS: Amorphous Light (0-Heavy); Mucus Light (0-Heavy); Transitional Epithelial Cells Rare /hpf (0-Rare)
[2022-09-19] MEDS ORDERED: ALDACTONE100 MG PO (21:17)
[2022-09-19] MEDS ORDERED: FURO40 PO (21:17)
--- NOTE | 2022-09-19 22:03 | NUR ---
ADMIT NOTE PATIENT ARRIVED TO ROOM 304 VIA STRETCHER AT 2049. SHE IS ALERT AND ORIENTED X4, IS EXPERIENCING INCREASED WEAKNESS AND REQUIRED A SLIDE TRANSFER TO HER BED. SHE HAD NO COMPLAINTS OF PAIN. GENERALIZED 3+ EDEMA NOTED. APPEARS DYSPNIC ON EXERTION WITH SHALLOW BREATHING. PUREWICK PLACED DUE TO PATIENT'S GREAT DIFFICULTY GETTING TO COMMODE WITH TWO PERSON ASSIST. SCD'S PLACED WELL.
[2022-09-20 04:58] LABS: Hematocrit 27.4 % (33.0-51.0); Mean Corpuscular HGB 26.5 pg (26.0-34.0); Mean Corpuscular HGB Conc 32.8 g/dL (31.5-36.5); Mean Corpuscular Volume 81 fL (80-100); Mean Platelet Volume 10.1 fL (9.1-12.4); Platelet Count 302 K/mm3 (150-400); RDW Coefficient Variation 21.5 % (11.7-14.2); RDW Standard Deviation 63.1 fL (35.1-46.3); Red Blood Cell Count 3.39 M/mm3 (3.80-5.20); White Blood Cell Count 4.86 K/mm3 (4.00-11.30)
--- NOTE | 2022-09-20 05:23 | NUR ---
SHIFT SUMMARY PATIENT ALERT AND ORIENTED. HAD NO COMPLAINTS OF PAIN. NO ACUTE ISSUES NOTED OVERNIGHT. CALL LIGHT WITHIN REACH. REPORT GIVEN TO ONCOMING RN.
[2022-09-20 05:26] LABS: Bun/Creatinine Ratio 13.1 (12.0-20.0); Calcium, Blood 9.5 mg/dL (8.5-10.1); Creatinine, Blood 2.13 mg/dL (0.40-1.00); Magnesium, Blood 2.1 mg/dL (1.6-2.4); Potassium, Blood 3.8 mmol/L (3.5-5.5); Thyroid Stimulating Hormone 7.27 uIU/mL (0.360-4.800)
--- NOTE | 2022-09-20 18:48 | NUR ---
SUMMARY- PT A/O X4. SEVERE WEAKNESS. SOB RELATED TO LG ABD. DECREASED APPETITE. DID NOT WANT TO TRY TO GET OOB. USING PUREWICK TO VOID. PLAN FOR PARACENTESIS TOMORROW. RENAL US DONE TODAY AND ECHO DONE TODAY.
[2022-09-21 03:54] LABS: Hematocrit 28.2 % (33.0-51.0); Hemoglobin 9.2 g/dL (11.5-16.0); Mean Corpuscular HGB 26.4 pg (26.0-34.0); Mean Corpuscular HGB Conc 32.6 g/dL (31.5-36.5); Mean Corpuscular Volume 81 fL (80-100); Mean Platelet Volume 9.7 fL (9.1-12.4); Platelet Count 274 K/mm3 (150-400); RDW Standard Deviation 64.4 fL (35.1-46.3); Red Blood Cell Count 3.48 M/mm3 (3.80-5.20); White Blood Cell Count 5.33 K/mm3 (4.00-11.30)
[2022-09-21 04:09] LABS: International Normalized Ratio 1.24; Prothrombin Time Results 12.8 Sec (9.7-11.5)
[2022-09-21 04:15] LABS: Anion Gap 8 mmol/L (6-16); Blood Urea Nitrogen 28 mg/dL (8-24); Bun/Creatinine Ratio 12.8 (12.0-20.0); CO2, Blood 25 mmol/L (21-32); Calcium, Blood 9.6 mg/dL (8.5-10.1); Chloride, Blood 105 mmol/L (98-108); Creatinine, Blood 2.18 mg/dL (0.40-1.00); Glomerular Filtration Rate 25 (60-); Glucose, Blood 78 mg/dL (70-99); Phosphorus, Blood 3.7 mg/dL (2.5-4.9); Potassium, Blood 3.8 mmol/L (3.5-5.5); Sodium, Blood 138 mmol/L (136-145)
--- NOTE | 2022-09-21 06:19 | NUR ---
SHIFT SUMMARY PATIENT ALERT AND ORIENTED X3. IS SHORT OF BREATH AND DYSPNIC UPON MINIMAL EXERTION. PATIENT ACCIDENTALLY PULLED HER IV, A NEW ONE WAS PLACED IN HER RIGHT WRIST. GENERALIZED EDEMA REMAINS 3+, PATIENT IS VERY UNCOMFORTABLE A RESULT. PUREWICK IN PLACE. NO ACUTE ISSUES NOTED OVERNIGHT. CALL LIGHT WITHIN REACH. REPORT GIVEN TO ONCOMING RN.
--- NOTE | 2022-09-21 17:08 | NUR ---
SHIFT SUMMARY PT A/O X3; PLEASANT AND COOPERATIVE WITH CARE. PT EXPERIENCING ABD PAIN DUE TO HER EDEMA. NO PARACENTESIS TODAY DUE TO LOW AMOUNT OF FLUID PRESENT. PT SEEMS TO HAVE BECOME INCREASINGLY CONFUSED AND WILL CALL OUT. VOIDING OFTEN IN BED WORTHY.
--- NOTE | 2022-09-22 04:01 | NUR ---
SHIFT SUMMARY: Pt A/Ox2-3 this shift. Overnight pt did not sleep well. Pt noted she never sleeps well. Pt was moaning out during shift, when asking if she was in pain pt would nod but wouldn't be able to state where the pain was located. PRN tylenol utilized Q6h to help with generalized pain. Pt BLE remain around a +1-2 edema. She is voiding an adequate amount using the bed daniels overnight. She noted she felt slightly SOB, although O2 levels were WNL.
[2022-09-22 11:26] LABS: Albumin, Blood 2.9 g/dL (3.4-5.0); Anion Gap 7 mmol/L (6-16); Blood Urea Nitrogen 26 mg/dL (8-24); Bun/Creatinine Ratio 14.3 (12.0-20.0); CO2, Blood 26 mmol/L (21-32); Calcium, Blood 9.5 mg/dL (8.5-10.1); Chloride, Blood 105 mmol/L (98-108); Creatinine, Blood 1.82 mg/dL (0.40-1.00); Glomerular Filtration Rate 31 (60-); Glucose, Blood 113 mg/dL (70-99); Phosphorus, Blood 3.4 mg/dL (2.5-4.9); Potassium, Blood 4.1 mmol/L (3.5-5.5); Sodium, Blood 138 mmol/L (136-145)
[2022-09-22] MEDS ORDERED: MIDO5 PO (15:40)
[2022-09-22] MEDS ORDERED: FURO40 PO (15:41)
[2022-09-22] MEDS ORDERED: DOXY100 PO (15:43)
--- NOTE | 2022-09-22 18:31 | NUR ---
SHIFT SUMMARY PT C/O LESS PAIN THIS SHIFT BUT STILL MOANS AND VOCALIZES LIKE SHE IS IN PAIN. DENIES NEED FOR PAIN MEDICATION. EDEMA IS SLIGHTLY BETTER THIS SHIFT. PT IS ABLE TO GET UP WITH A 1 ASSIST TO THE BATHROOM. IT WAS FOUND THAT PT HAS ESBL IN HER URINE. STARTED ON ABX UPON DISCHARGE. PT DISCHARGED HOME WITH HOME HEALTH AND DRIVEN HOME BY FRIEND.
== END 2022-09-22 18:18 | disposition home or self-care (01) | DRG 432 ==
LOC: ER 15:11 → MEDS 15:12
PROVIDERS: Nurse Practitioner Acute Care; Physician Assistant; Student in an Organized Health Care Education/Training Program; ADMIT Internal Medicine
DX: K70.31 Alcoholic cirrhosis of liver with ascites (principal); I50.31 Acute diastolic (congestive) heart failure; N17.9 Acute kidney failure, unspecified; E87.1 Hypo-osmolality and hyponatremia; N39.0 Urinary tract infection, site not specified; I82.622 Acute embolism and thrombosis of deep veins of left upper extremity; K76.6 Portal hypertension; Z68.41 Body mass index [BMI] 40.0-44.9, adult; R60.1 Generalized edema; E87.6 Hypokalemia; F10.20 Alcohol dependence, uncomplicated; E03.9 Hypothyroidism, unspecified; D63.8 Anemia in other chronic diseases classified elsewhere; D50.9 Iron deficiency anemia, unspecified; Z90.49 Acquired absence of other specified parts of digestive tract; Z98.890 Other specified postprocedural states; I95.2 Hypotension due to drugs; T50.1X5A Adverse effect of loop [high-ceiling] diuretics, initial encounter; E88.09 Other disorders of plasma-protein metabolism, not elsewhere classified; I27.20 Pulmonary hypertension, unspecified; K21.9 Gastro-esophageal reflux disease without esophagitis; I11.0 Hypertensive heart disease with heart failure
CPT/HCPCS: 36415; 71046; 76705; 76770; 80048; 80053; 80069; 81001; 83735; 83880; 84443; 84484; 85025; 85027; 85610; 87077; 87086; 87186; 93005; 93010; 93306; 94760; 96372; 96376; A9270; C9113; G0378; J1644; J1940

== ENCOUNTER 2022-09-30 12:23 | Inpatient (IN) | payer OTHER ==
[~2022-09-30] VITALS: Ht 152.4 cm; Wt 98.2 kg
[~2022-09-30 12:23] MED LIST changes: +ALDACTONE100 MG PO; +DOXY100 PO; +FURO40 PO; +MIDO5 PO
[2022-09-30 13:43] LABS: BASOPHILS ABSOLUTE AUTO 0.04 K/mm3 (0.00-0.23); BASOPHILS PERCENT AUTO 1 % (0-2); EOSINOPHILS ABSOLUTE AUTO 0.13 K/mm3 (0.00-0.68); EOSINOPHILS PERCENT AUTO 3 % (0-6); Hematocrit 32.9 % (33.0-51.0); Hemoglobin 10.7 g/dL (11.5-16.0); IMMATURE GRAN ABSOLUTE AUTO 0.02 K/mm3 (0.00-0.10); IMMATURE GRAN PERCENT AUTO 1 % (0-1); LYMPHOCYTES ABSOLUTE AUTO 0.77 K/mm3 (0.84-5.20); LYMPHOCYTES PERCENT AUTO 19 % (21-46); MONOCYTES PERCENT AUTO 17 % (4-13); Mean Corpuscular HGB 26.5 pg (26.0-34.0); Mean Corpuscular HGB Conc 32.5 g/dL (31.5-36.5); Mean Corpuscular Volume 81 fL (80-100); Mean Platelet Volume 10.6 fL (9.1-12.4); NEUTROPHILS ABSOLUTE AUTO 2.48 K/mm3 (1.96-9.15); NEUTROPHILS PERCENT AUTO 60 % (41-73); Platelet Count 280 K/mm3 (150-400); RDW Coefficient Variation 22.1 % (11.7-14.2); RDW Standard Deviation 65.1 fL (35.1-46.3); Red Blood Cell Count 4.04 M/mm3 (3.80-5.20); White Blood Cell Count 4.14 K/mm3 (4.00-11.30)
[2022-09-30 14:03] LABS: Albumin, Blood 3.5 g/dL (3.4-5.0); Albumin/Globulin Ratio 0.7 (0.8-1.8); Bilirubin, Total 2.2 mg/dL (0.1-1.0); Bun/Creatinine Ratio 13.3 (12.0-20.0); Calcium, Blood 10.3 mg/dL (8.5-10.1); Creatinine, Blood 3.38 mg/dL (0.40-1.00); Globulin, Blood 4.7 g/dL (2.2-4.0); Potassium, Blood 4.5 mmol/L (3.5-5.5); Total Protein, Blood 8.2 g/dL (6.4-8.2)
[2022-09-30 18:58] LABS: International Normalized Ratio 1.36
[2022-10-01 04:07] LABS: BASOPHILS ABSOLUTE AUTO 0.04 K/mm3 (0.00-0.23); BASOPHILS PERCENT AUTO 1 % (0-2); EOSINOPHILS ABSOLUTE AUTO 0.14 K/mm3 (0.00-0.68); EOSINOPHILS PERCENT AUTO 4 % (0-6); Hemoglobin 9.8 g/dL (11.5-16.0); IMMATURE GRAN ABSOLUTE AUTO 0.01 K/mm3 (0.00-0.10); IMMATURE GRAN PERCENT AUTO 0 % (0-1); LYMPHOCYTES ABSOLUTE AUTO 1.01 K/mm3 (0.84-5.20); LYMPHOCYTES PERCENT AUTO 27 % (21-46); MONOCYTES ABSOLUTE AUTO 0.82 K/mm3 (0.16-1.47); MONOCYTES PERCENT AUTO 22 % (4-13); Mean Corpuscular HGB 26.3 pg (26.0-34.0); Mean Corpuscular HGB Conc 32.7 g/dL (31.5-36.5); Mean Corpuscular Volume 80 fL (80-100); Mean Platelet Volume 10.2 fL (9.1-12.4); NEUTROPHILS PERCENT AUTO 46 % (41-73); Platelet Count 235 K/mm3 (150-400); RDW Coefficient Variation 22.2 % (11.7-14.2); Red Blood Cell Count 3.73 M/mm3 (3.80-5.20); White Blood Cell Count 3.72 K/mm3 (4.00-11.30)
[2022-10-01 04:27] LABS: Albumin, Blood 3.2 g/dL (3.4-5.0); Albumin/Globulin Ratio 0.8 (0.8-1.8); Bun/Creatinine Ratio 12.7 (12.0-20.0); Calcium, Blood 9.8 mg/dL (8.5-10.1); Creatinine, Blood 3.85 mg/dL (0.40-1.00); Globulin, Blood 4.2 g/dL (2.2-4.0); Potassium, Blood 4.9 mmol/L (3.5-5.5); Total Protein, Blood 7.4 g/dL (6.4-8.2)
--- NOTE | 2022-10-01 06:50 | NUR ---
DRY CHAIN PULLER SUMMARY ASSUMED CARE OF PATIENT AT 2049 ON 09/30/22. PT BROUGHT TO ROOM BY ER NURSE LORENA. PT IS ALERT AND ORIENTED X4. SHE HAS PITTING EDEMA TO BUE AND BLE AND GENERALLY. PT IS COOPERATIVE. SHE REFUSED LACTULOSE DUE TO COMPLAINTS OF CONTINUED DIARRHEA. PT IS NPO CURRENTLY PER DOCTOR ORDER. SHE REQUIRES ASSISTANCE WITH ROLLING. CURRENTLY ON BEDREST WITH BEDPAN DUE TO PT REPORTS OF WORSENING WEAKNESS. SHE HAS NOT HAD ANY EPISODES OF DIARRHEA THIS SHIFT AND HAS BEEN UNABLE TO VOID. BLADDER SCAN SHOWS AROUND 175 ML IN BLADDER. PT REPORTS FEELING NAUSEOUS THIS AM AND MEDICATED WITH ZOFRAN WITH IMPROVEMENT. PT REFUSED FIRST DOSE OF MIDODRINE DUE TO SLEEPING. BP HAS BEEN STABLE IN THE 110S SYSTOLIC. SHE CONTINUES TO COMPLAIN OF SHORTNESS OF BREATH BUT SATTING >92% ON RA. TELE HAS BEEN SINUS JESSIE IN THE MID 40S ALL SHIFT.
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
--- NOTE | 2022-10-01 12:55 | NUR ---
UPDATE PT W/ EPISODE OF CLEAR LIQUID-MUCOUSY EMESIS THEN W/ CLEAR/BROWN LIQUID EMESIS. PT REPORTING SUDDEN ONSET OF EMESIS DENYING NAUSESA OR ANY INDICATION OF EMESIS COMING. PT DENYING NAUSEA POST EMESIS. PT W/ NO URINE OUTPUT YET THIS SHIFT. PT DENYING NEED TO VOID. BLADDER SCAN SHOWING 230 MLS URINE. PT ATTEMPT TO USE BEDPAN BUT UNABLE TO PRODUCE URINE. MD GUSTAFSON NOTIFIED W/ INSTRUCTION TO HOLD OFF ON LOZANO CATHETER FOR NOW, AND TO PLACE IF BLADDER SCAN SHOWS > 400 MLS. PT W/ GAS & SCANT AMOUNT OF LIQUID BROWN STOOL WHEN ATTEMPTING TO URINATE. STOOL SAMPLE SENT TO LAB PER ORDER.
[2022-10-01 14:15] LABS: C DIFFICILE DNA NEGATIVE (Negative)
--- NOTE | 2022-10-01 18:17 | NUR ---
END OF SHIFT NOTE PT A&O X4. VSS. SPO2 > 92% ON RA UPON CARE ASSUMPTION. O2 TITRATED UP TO 2-4L NC FOR SPO2 > 92% THIS SHIFT. MONITOR SHOWING SB, HR 40s-50s. PT W/ NO URINE OUTPUT THIS SHIFT. BLADDER SCAN DONE MID SHIFT SHOWING 230 MLS & BLADDER SCAN AT END OF SHIFT SHOWING 235 MLS. PT ATTEMPTING TO USE BED WORTHY W/ NO URINE OUTPUT. PT INCONTINENT OF LIQUID STOOL. PRN MARCOS CARE ATTENDS CHANGES PROVIDED. BED ALARM ON. CALL LIGHT IN REACH.
[2022-10-01 18:45] LABS: CPK Creatine Kinase 199 U/L (26-193); Lactate Dehydrogenase (Ld),Bld 376 U/L (100-240)
[2022-10-02 05:24] LABS: BASOPHILS ABSOLUTE AUTO 0.04 K/mm3 (0.00-0.23); BASOPHILS PERCENT AUTO 1 % (0-2); EOSINOPHILS ABSOLUTE AUTO 0.17 K/mm3 (0.00-0.68); EOSINOPHILS PERCENT AUTO 4 % (0-6); Hematocrit 28.8 % (33.0-51.0); Hemoglobin 9.2 g/dL (11.5-16.0); IMMATURE GRAN ABSOLUTE AUTO 0.02 K/mm3 (0.00-0.10); IMMATURE GRAN PERCENT AUTO 1 % (0-1); LYMPHOCYTES ABSOLUTE AUTO 0.96 K/mm3 (0.84-5.20); LYMPHOCYTES PERCENT AUTO 23 % (21-46); MONOCYTES ABSOLUTE AUTO 1.05 K/mm3 (0.16-1.47); MONOCYTES PERCENT AUTO 26 % (4-13); Mean Corpuscular HGB 26.4 pg (26.0-34.0); Mean Corpuscular HGB Conc 31.9 g/dL (31.5-36.5); Mean Corpuscular Volume 83 fL (80-100); Mean Platelet Volume 10.1 fL (9.1-12.4); NEUTROPHILS ABSOLUTE AUTO 1.86 K/mm3 (1.96-9.15); NEUTROPHILS PERCENT AUTO 45 % (41-73); Platelet Count 205 K/mm3 (150-400); RDW Coefficient Variation 22.4 % (11.7-14.2); RDW Standard Deviation 66.1 fL (35.1-46.3); Red Blood Cell Count 3.48 M/mm3 (3.80-5.20)
[2022-10-02 05:46] LABS: Anion Gap 12 mmol/L (6-16); Blood Urea Nitrogen 50 mg/dL (8-24); Bun/Creatinine Ratio 10.6 (12.0-20.0); CO2, Blood 22 mmol/L (21-32); Calcium, Blood 9.5 mg/dL (8.5-10.1); Chloride, Blood 100 mmol/L (98-108); Creatinine, Blood 4.71 mg/dL (0.40-1.00); Glomerular Filtration Rate 10 (60-); Glucose, Blood 106 mg/dL (70-99); Phosphorus, Blood 7.3 mg/dL (2.5-4.9); Potassium, Blood 5.2 mmol/L (3.5-5.5); Sodium, Blood 134 mmol/L (136-145)
--- NOTE | 2022-10-02 06:08 | NUR ---
MEDICAL SCIENTIFIC LIAISON SUMMARY ASSUMED CARE OF PATIENT AT 1900. SHE IS ALERT AND ORIENTED X4, PLEASANT ALTHOUGH SLIGHTLY MORE ANXIOUS TONIGHT. BP HAS REMAINED SOFT, MAP >65 WITH MANUAL BP. SHE HAS BEEN SINUS JESSIE ON TELE THIS SHIFT WITH NO ACUTE TELE EVENTS. INFUSION OF SANDOSTATIN CONTINUED FOR PT'S COMPLAINTS OF DIARRHEA. SHE HAD ONE MEDIUM BROWN SOFT BM THIS SHIFT BUT REPORTED FEELING THE URGE MANY TIMES. PT COMPLAINED OF BILATERAL FLANK PAIN THAT IMPROVED WITH REPOSITIONING AND APPLICATION OF HEATING PAD. OXYGEN REQUIREMENT HAS INCREASED TO 5L BY NC BUT LUNG SOUNDS ARE CLEAR, DIMINISHED AT THE BASES. SHE HAS GURGLING AND MOANING WITH BREATHING AND OCCASIONAL NONPRODUCTIVE COUGH. PT SWELLING IS GENERALIZED AND APPEARS STABLE. SHE IS ON BEDREST DURING THIS SHIFT DUE TO WEAKNESS AND LIMITED RANGE OF MOTION, NEEDING TWO PERSON ASSISTANCE WITH CHANGES. LOZANO WAS PLACED THIS MORNING DUE TO NO URINE OUTPUT AND BLADDER SACN OF 430 ML - SAMPLE SENT TO LAB.
[2022-10-02 07:47] LABS: Eosinophils-Raw #,Urine 0
--- NOTE | 2022-10-02 18:32 | NUR ---
SHIFT SUMMARY NO ACUTE EVENTS. HR REMAINED 40s-50s THIS SHIFT. PT ABLE TO RESPOND TO VERBAL STIMULUS AND FOLLOW COMMANDS. NEPHROLOGY AT BEDSIDE THIS MORNING, PLAN FOR DIALYSIS CATH AND DIALYSIS. DIALYSIS CATH PLACED TODAY AT BEDSIDE BY DR. MCGEE, DIALYSIS AT BEDSIDE NEAR THE END OF THIS SHIFT.
[2022-10-03 05:20] LABS: BASOPHILS ABSOLUTE AUTO 0.04 K/mm3 (0.00-0.23); BASOPHILS PERCENT AUTO 1 % (0-2); EOSINOPHILS ABSOLUTE AUTO 0.19 K/mm3 (0.00-0.68); EOSINOPHILS PERCENT AUTO 5 % (0-6); Hematocrit 26.2 % (33.0-51.0); Hemoglobin 8.4 g/dL (11.5-16.0); IMMATURE GRAN ABSOLUTE AUTO 0.01 K/mm3 (0.00-0.10); IMMATURE GRAN PERCENT AUTO 0 % (0-1); LYMPHOCYTES ABSOLUTE AUTO 0.96 K/mm3 (0.84-5.20); LYMPHOCYTES PERCENT AUTO 24 % (21-46); MONOCYTES ABSOLUTE AUTO 0.88 K/mm3 (0.16-1.47); MONOCYTES PERCENT AUTO 22 % (4-13); Mean Corpuscular HGB 26.4 pg (26.0-34.0); Mean Corpuscular HGB Conc 32.1 g/dL (31.5-36.5); Mean Corpuscular Volume 82 fL (80-100); Mean Platelet Volume 10.1 fL (9.1-12.4); NEUTROPHILS ABSOLUTE AUTO 1.98 K/mm3 (1.96-9.15); NEUTROPHILS PERCENT AUTO 49 % (41-73); Platelet Count 113 K/mm3 (150-400); RDW Standard Deviation 65.7 fL (35.1-46.3); Red Blood Cell Count 3.18 M/mm3 (3.80-5.20); White Blood Cell Count 4.06 K/mm3 (4.00-11.30)
[2022-10-03 05:49] LABS: Albumin, Blood 4.1 g/dL (3.4-5.0); Albumin/Globulin Ratio 1.4 (0.8-1.8); Bilirubin, Total 2.3 mg/dL (0.1-1.0); Bun/Creatinine Ratio 9.1 (12.0-20.0); Calcium, Blood 9.1 mg/dL (8.5-10.1); Creatinine, Blood 4.07 mg/dL (0.40-1.00); Magnesium, Blood 2.1 mg/dL (1.6-2.4); Phosphorus, Blood 5.6 mg/dL (2.5-4.9); Potassium, Blood 4.6 mmol/L (3.5-5.5); Total Protein, Blood 7.1 g/dL (6.4-8.2)
--- NOTE | 2022-10-03 06:15 | NUR ---
SHIFT SUMMARY: THIS AUTHOR ASSUMED PATIENT CARES FROM [id number]. UPON ARRIVAL, PATIENT WAS IN PROCESS OF BEING DIALYZED. PER DIALYSIS NURSE, 1L PULLED AND PLAN FOR ANOTHER RUN 10/03 WITH GOAL OF 1-2L PULL. NO ACUTE NEEDS OVERNIGHT. PATIENT IS ORIENTED BUT DELAYED IN RESPONSES. AUTHOR SPOKE WITH CAREGIVER, AP, WHO SAID PATIENT IS DELAYED AT BASELINE. NEURO STATUS WAXES AND WANES A BIT; SHE IS VERY LUCID AND CONVERSATIONAL AT TIMES, AND THEN WILL BE LETHARGIC AND NONCONVERSATIONAL WITHOUT REPEATED ATTEMPTS. AFEBRILE. DENIES PAIN, SEEMS TO BE IN SOME DISCOMFORT. REFUSED TRAMADOL PRN. SHE HAS BEEN SB WITH RATES IN THE 50S FOR THE MAJORITY. BP WDL. +3 PITTING EDEMA IN ALL EXTREMITIES. LS PRETTY COARSE BUT SEEMS TO BE PARTICULARLY IN UPPER AIRWAY. SHE WILL GROAN/GRUNT AT REST. ON 6L NC CURRENTLY. AUTHOR APPLIED INLINE BUBBLER FOR MOISTURE. NO BM THIS SHIFT. VERY MINIMAL UOP. REMAINS ON OCTREOTIDE GTT.
--- NOTE | 2022-10-03 15:10 | NUR ---
TALKED TO DR. ACEVEDO THIS AM ABOUT PT'S AMMONIA LEVELS OF 101, AND HE PUT IN ORDERS FOR LACTULOSE TID. FAMILY WANTING TO TALK TO DR. ACEVEDO SO HE WAS NOTIFIED AND WILL BE DOWN IN ABOUT AN HOUR TO TALK WITH FAMILY.
--- NOTE | 2022-10-03 16:35 | NUR ---
DR. ACEVEDO CONVERSATION DR. GUSTAFSON CAME DOWN AND TALKED W/ PT'S FAMILY ABOUT THE PATIENTS CARE. THE PLAN IS TO TREAT WITH LACTULOSE AND SEE IF MENTATION CHANGES. IN A FEW DAYS IF IT DOES NOT IMPROVE THE FAMILY IS CONSIDERING HOSPICE. PALLITIVE WAS CALLED AND PLANS TO MEET WITH THE FAMILY TOMORROW. FAMILY AND DR. GUSTAFSON DECIDED TO CHANGE THE PATIENTS CODE STATUS FROM FULL CODE TO DNR. FAMILY UNDERSTANDS THE PATIENT IS IN END STAGE LIVER DISEASE AND IN ACUTE KIDENY INJURY. SEE NOTES FOR ANY UPDATES.
--- NOTE | 2022-10-03 17:41 | NUR ---
SHIFT SUMMARY PT IS ALERT, OPENS EYES SPONTANEOUSLY, CONFUSED WITH ORIENTATION X1, AND MOANS/GROANS FREQUENTLY. PT WAS ON 6L NC AT THE BEGINNING OF THE SHIFT AND AFTER DIALYSIS HER SP02 DEMAND WENT DOWN AND SHE IS CURRENTLY ON 2-3L NC. THEY TOOK 3L OF FLUID OFF IN DIALYSIS AND PLAN TO RUN HER AGAIN TOMORROW 08/04 AROUND 0900. PT HAS BEEN SB 50'S ALL SHIFT, AND HER PRESSURES HAVE BEEN STABLE. SHE C/O PAIN ONCE AFTER DIALYSIS AND WAS MEDICATED PER EMAR. PT IS NOW DNR, SEE PREVIOUS NOTE FOR MORE INFORMATION. PT HAS ALBUMIN RUNNING BID, AND OCTREOTIDE RUNNING CONTINUOUSLY. SHE IS A Q2 HOUR TURN, BUT SHE DOES MOVE AROUND IN BED A MINIMAL AMOUNT IND. THERE IS PLANS FOR A FAMILY MEETING TOMORROW W/ PALLITIVE CARE. CONTINUE TREATMENT W/ LACTULOSE. WILL MONITOR UNTIL REPORT IS GIVEN TO THE ONCOMING SHIFT RN. SEE NOTES FOR ANY UPDATES.
--- NOTE | 2022-10-03 23:05 | NUR ---
ASSUMED CARE AT 1900 PT LAYING IN BED WATCHING TV AT SHIFT CHANGE. SHE IS ALERT BUT NOT ORIENTED; SHE MOSLY JUST MOANS LOUDLY AND WILL OCCATIONALLY YELL "YEAH"; DOES NOT FOLLOW DIRECTIONS; SHE SCREAMS WHEN SHE IS IN PAIN DURING PERSONAL AND MARCOS CARE; PRN DILAUDID AVAILABLE FOR THESE TIMES. SPO2 >92% ON 5L NC. HR 50'S. BP STABLE. ANASARCA 2-3+ EDEMA NOTED. ABD MOD-SEVER DISTENTION; FIRM TO PALPATE; ONE LARGE BM NOTED SO FAR. PO MEDS HELD DUE TO ASPIRATION RISK. LOZANO IN PLACE WITH MINIMAL OUTPUT. OCTRIOTIDE INFUSING. TRIALYSIS CATH TO RIJ DRESSING C/D/I. SEE SHIFT ASSESSMENT FOR FULL ASSESSMENT.
--- NOTE | 2022-10-04 05:26 | NUR ---
END OF SHIFT SUMMARY NO ACUTE EVENTS OVERNIGHT. PT IS REACTIVE TO VERBAL STIMULI AND WILL OCCATIONALLY MAKE EYE CONTACT BUT DOES NOT FOLLOW DIRECTIONS AND MOSTLY MOANS, WAS NOT ABLE TO ANSWER ORIENTATION QUESTIONS; CONT TO YELL OUT IN PAIN DURING REPOSITIONING; DILAUDID GIVEN ONCE AND HELPFUL. O2 REQUIREMENTS INCREASED TO 13L HIGH FLOW NC TO KEEP SPO2 >90%; WEAK COUGH NOTED. AFEBRILE. HR 40-50'S. BP STABLE. ABD CONT TO BE FIRM, ONE LARGE BM THIS SHIFT. LOZANO IN PLACE WITH LITTLE OUTPUT. TRIALYSIS CATH TO RT IJ DRESSING C/D/I. OCTRIOTIDE CONT TO INFUSE. WILL REPORT TO AM RN WHEN AVAILABLE.
--- NOTE | 2022-10-04 12:08 | NUR ---
SHIFT UPDATE PT HAS DECLINED MORE SINCE YESTERDAY AND IS NO LONGER ABLE TO TAKE PO INTAKE. SIGNIFICANT OTHER AP ([phone]) CAME IN AND WAS INFORMED OF THE PT'S CONDITION AND HE CALLED HER PARTENTS CRISTELA AND ([phone]) AND THEY AGREED TO GO COMFORT CARE AND STOP DIALYSIS. DR. CARDENAS NOTIFIED AND GAVE HER PARENTS A CALL. DR. CARDENAS CAME TO [facility] TO TALK TO AP AND SEE THE PT. COMFORT CARE MEASURES HAVE BEGAN AND PALLITIVE TALKED TO ALL OF THE FAMILY. PT IS NOW ON ROOM AIR, HAS BEEN MEDICATED FOR PAIN, AND IS CURRENTLY RESTING. AP TOOK ALL OF HER BELONINGS HOME AND WOULD LIKE A CALL WHEN THE PT EXPIRES. SEE NOTES FOR ANY UPDATES. THE HOME THAT WAS PICKED WAS IN SECRETARY.
--- NOTE | 2022-10-04 17:05 | NUR ---
Pt was placed on comfort care today by her s/o Pat of 30 years. She appears comfortable at this time. Attempted to call her mom and step-dad to update them on pt's status as they requested, but unable to reach them. Left a voicemail.
--- NOTE | 2022-10-04 17:16 | NUR ---
SHIFT SUMMARY & FAMILY CONTACT & HOME PT IS COMFORT CARE AND HAS BEEN VISITED FROM PALLIATIVE CARE AND PARTNER AP. SHE IS Q2 TURN, HAS A LOZANO DRAINING TO GRAVITY, AND HAS BEEN MEDICATED PER EMAR WHEN SHE HAS INDICATIONS OF PAIN. PT MOANS VERY LOUD WHEN REPOSITIONED. SHE IS CURRENTLY ASLEEP IN THE ROOM ON ROOM AIR. HER DOOR IS OPEN, BED IN LOW, THREE SIDE RIALS UP, AND IS CHECKED ON FREQUENTLY. FAMILY CHOSE [facility] FOR THE HOME. NOTIFY FAMILY WHEN SHE PASSES. WILL CONTINUE TO MONITOR UNTIL SHIFT REPORT IS GIVEN TO THE ONCOMING SHIFT RN. SEE NOTES FOR ANY UPDATES. AP (PARTNER): [phone] NEELIMA (STEP DAD AND MOTHER): [phone]
--- NOTE | 2022-10-04 22:44 | NUR ---
PATIENT AWAKENS TO VERBAL STIMULI, OPENS EYES AND MOUTH TO DIRECTION BUT HOLDS BODY AND EXTREMITIES STIFF. MOANING DURING STIMULI BUT QUIET AND RELAXED WHEN UNDISTURBED. PATIENT RESP 8-10 WITH PATIENT GRUNTING, BIOX LOW 80'S ON RA OXYGEN PLACED 2L/NC AND PATIENT APPEARS TO BE BREATHING EASIER AND BIOX 93% TRIALYSIS DIALYSIS CATH IN PLACE TO RIGHT IJ. GENERALIZED EDEMA CONTINUES. PATIENT IS COMFORT CARE.
--- NOTE | 2022-10-05 06:28 | NUR ---
SUMMARY PATIENT COMFORT CARE. RESTING QUIETLY, AWAKENS TO SLIGHT STIMULI, MOANING, AND NONVERBAL. FOLLOWING OCCASIONAL DIRECTIONS TO OPEN MOUTH AND TO OPEN EYES. HOLDING EXTREMITIES VERY TIGHT AND NOT MOVING EXTREMITIES. MEDICATED ONCE FOR PAIN. OXYGEN 2L/NC IN PLACE FOR COMFORT.
[2022-10-05 08:08] LABS: HBSAG SCREEN Negative (Negative); HCV AB 0.1 (0.0-0.9); HEP A AB, IGM Negative (Negative); HEP B CORE AB, IGM Negative (Negative)
--- NOTE | 2022-10-05 14:17 | NUR ---
TRANSFER NOTE PT TRANSFERRED FROM PCU, REPORT RECEIVED FROM [facility]. PT IS ON COMFORT CARE. BED AT IT'S LOWEST POSITION AND CALL LIGHT WITHIN REACH.
--- NOTE | 2022-10-05 18:03 | NUR ---
SHIFT SUMMARY PT HAS BEEN COMPLIANT AND COOPERATIVE ALL SHIFT. SHE HAS BEEN SLEEPING OFF AND ON MOST OF THE SHIFT. A NEW MEPALEX WAS APPLIED TO HER HEALING COCCYX WOUND THIS SHIFT.
--- NOTE | 2022-10-05 18:08 | NUR ---
SHIFT SUMMARY PT ARRIVED FROM THE PCU TODAY ON COMFORT CARE. SHE HAS NO FAMILY AT THE BS AND HER HAS ALREADY SAID HIS GOODBYES PER THE PCU NURSE. PT RECEIVED A BED BATH THIS SHIFT ALONG WITH PAIN MANAGEMENT PER THE EMAR. SHE IS SOMNOLENT AND ONLY GROANS OR MOANS. SHE HAS BEEN SLEEPING OFF AND ON THIS SHIFT AND CURRENTLY LOOKS COMFORTABLE. SHE DOES OPEN HER EYES WHEN SPOKEN TO AND WILL FOLLOW SOME SIMPLE COMMANDS. CALL LIGHT PLACED WITHIN REACH.
--- NOTE | 2022-10-06 07:27 | NUR ---
FLACCID EXTREMITIES. SOMNULENT. OPENS EYES AND BLINKS BUT DOES NOT TRACK. MEDICATED FOR S/S PAIN (MOANING AND FACIAL GRIMACING) APPROX Q2-3 HRS. ORAL CARE AND PRN SUBLINGUAL DROPS FOR SECRETION CONTROL APPROX Q2 HRS. REPOSITIONED FOR COMFORT APPROX Q2 HRS. LOZANO PATENT; MINIMAL, DARK URINE OUTPUT IN TUBING. AFEBRILE.
--- NOTE | 2022-10-06 18:47 | NUR ---
Pt's family has been notified of pt's passing, along with her S.Fish Haney by this RN. Condolences given. They have chosen [facility] in [place].
== END 2022-10-06 16:20 | DRG 441 ==
LOC: ER 12:23 → PCU 12:24 → MEDS 10-01 08:32 → PCU 10-01 08:32 → MEDS 10-05 13:30
PROVIDERS: Internal Medicine; Internal Medicine Nephrology; Physician Assistant; Student in an Organized Health Care Education/Training Program; ADMIT Student in an Organized Health Care Education/Training Program
PROC: 02HV33Z Insertion of Infusion Device into Superior Vena Cava, Percutaneous Approach (ICD-10-PCS; principal; 2022-10-02)
PROC: 5A1D70Z Performance of Urinary Filtration, Intermittent, Less than 6 Hours Per Day (ICD-10-PCS; 2022-10-02)
PROC: B548ZZA Ultrasonography of Superior Vena Cava, Guidance (ICD-10-PCS; 2022-10-02)
DX: K76.82 Hepatic encephalopathy (principal); G92.8 Other toxic encephalopathy; K76.7 Hepatorenal syndrome; N17.0 Acute kidney failure with tubular necrosis; J81.1 Chronic pulmonary edema; J90 Pleural effusion, not elsewhere classified; K70.30 Alcoholic cirrhosis of liver without ascites; Z51.5 Encounter for palliative care; R00.1 Bradycardia, unspecified; K21.9 Gastro-esophageal reflux disease without esophagitis; I10 Essential (primary) hypertension; D63.8 Anemia in other chronic diseases classified elsewhere; E78.2 Mixed hyperlipidemia; E03.9 Hypothyroidism, unspecified; D13.6 Benign neoplasm of pancreas; R79.89 Other specified abnormal findings of blood chemistry; F10.11 Alcohol abuse, in remission; E06.3 Autoimmune thyroiditis; Z87.19 Personal history of other diseases of the digestive system; Z79.2 Long term (current) use of antibiotics; Z79.01 Long term (current) use of anticoagulants; Z79.899 Other long term (current) drug therapy; Z98.890 Other specified postprocedural states
CPT/HCPCS: 36415; 36556; 71045; 71046; 76705; 80053; 80069; 80074; 82140; 82248; 82436; 82550; 82570; 83615; 83735; 83880; 84100; 84133; 84156; 84300; 84484; 84540; 85025; 85610; 86317; 87205; 87493; 93005; 93010; 94762; 96374; 99285-25; A9270; C1751; C1752; G0378; J1170; J2060; J2270; J2354; J2405; J7050; P9047